=== PATIENT | female | born 1950 | race Caucasian/White ===

== ENCOUNTER 2022-06-15 13:42 | Observation (INO) | payer MEDICARE, SELFPAY ==
[2022-06-15] VITALS (9 sets, daily range): BP systolic 112–150; BP diastolic 58–103; PULSE 76–132; RESP 16–20; TEMP 36.7; O2SAT 95–98
--- NOTE | 2022-06-15 13:57 | ECG_ITS ---
[facility] Test Date: 2022-06-15 Pat Name: Brittany Harrington Department: Room: Gender: Female Content Director: : 1950 Requested By: Zackary Bell Order Number: [id number] Christine MD: Sabrina Mckenzie M.D. Measurements Intervals [place] Rate: 131 P: -82 IA: 110 QRS: -54 QRSD: 129 T: 57 QT: 376 QTc: 555 Interpretive Statements Possible sinus tachycardia with frequent SUPRAVENTRICULAR PREMATURE COMPLEXES RIGHT BUNDLE BRANCH BLOCK [120+ ms QRS DURATION, UPRIGHT V1, 40+ ms S IN I/aVL/V4/V5/V6] LEFT ANTERIOR FASCICULAR BLOCK [QRS AXIS <= -45, QR IN I, RS IN II] LEFT VENTRICULAR HYPERTROPHY AND ST-T CHANGE [VOLTAGE CRITERIA PLUS ST/T ABNORMALITY] POSSIBLE SEPTAL MYOCARDIAL INFARCTION , OF INDETERMINATE AGE [30 ms Q WAVE IN V1/V2] No previous ECG available for comparison Electronically Signed On 06-15-2022 15:59:58 SNOWBOARDER by Sabrina Mckenzie M.D. [email or web address] the [email or web address] [email or web address] [email or web address]/store/[id number] chase
--- NOTE | 2022-06-15 14:04 | XRR_ITS ---
PROCEDURE INFORMATION: Exam: XR Chest Exam date and time: 06/15/2022 3:13 PM Age: 72 years old Clinical indication: Pain; Chest pressure; Additional info: Cp TECHNIQUE: Imaging protocol: Radiologic exam of the chest. Views: 1 view. COMPARISON: No relevant prior studies available. FINDINGS: Lungs: Unremarkable. No consolidation. Pleural spaces: Unremarkable. No pleural effusion. No pneumothorax. Heart/Mediastinum: Unremarkable. No cardiomegaly. Bones/joints: Unremarkable. XR/XR chest 1V portable [id number] IMPRESSION: No acute findings.
[2022-06-15] MEDS: sodium chloride 0.9% 1,000 ML 999 ML IV (14:17)
[2022-06-15 14:20] LABS: Basophils # 0.1 10^3/uL (0.0-0.1); Basophils % 0.5 %; Eosinophils # 0.1 10^3/uL (0.0-0.8); Eosinophils % 1.1 %; Hematocrit 49.9 % (37.0-47.0); Hemoglobin 15.9 g/dL (11.5-15.3); Lymphocytes % 20.2 %; Mean Corpuscular HGB Conc 31.9 g/dL (30.0-36.0); Mean Corpuscular Hemoglobin 27.9 pg (28.0-34.0); Mean Corpuscular Volume 87.7 fl (81-99); Mean Platelet Volume 11.2 fL (7.4-10.4); Monocytes # 0.9 10^3/uL (0.2-0.9); Monocytes % 8.7 %; Neutrophils # 6.99 10^3/uL (1.8-7.7); Neutrophils % 69.2 %; Nucleated Red Blood Cells % 0 %; Platelet Count 344 10^3/cmm (130-400); Red Blood Count 5.69 10^6/uL (4.1-5.3); Red Cell Distribution Width 14.1 % (12.1-15.1); White Blood Count 10.1 10^3/uL (4.0-10.0)
--- NOTE | 2022-06-15 14:21 | ECG_ITS ---
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 Measurements Intervals [place] Rate: 82 P: 26 MA: 142 QRS: -30 QRSD: 130 T: 54 QT: 461 QTc: 541 Interpretive Statements SINUS RHYTHM POSSIBLE LEFT ATRIAL ENLARGEMENT [-0.1mV P-WAVE IN V1/V2] RIGHT BUNDLE BRANCH BLOCK [120+ ms QRS DURATION, UPRIGHT V1, 40+ ms S IN I/aVL/V4/V5/V6] POSSIBLE LEFT VENTRICULAR HYPERTROPHY [VOLTAGE CRITERIA PLUS LAE OR QRS WIDENING] POSSIBLE SEPTAL MYOCARDIAL INFARCTION , PROBABLY OLD [30 ms Q WAVE IN V1/V2] No previous ECG available for comparison Electronically Signed On 06-15-2022 16:00:03 METAL BONDING ASSEMBLER by Sabrina Mckenzie M.D. [id number]
--- NOTE | 2022-06-15 14:37 | W.ED.CHESTPA ---
HPI - Chest Pain General: Chief Complaint: Chest Pain Stated Complaint: CHEST PAIN Time Seen by Provider: 06/15/22 13:45 History of Present Illness: 72-year-old female presents the emergency department with a chief complaint of having an episode of midsternal chest pressure that started prior to arrival as well as palpitations. Patient contacted EMS who brought her in and she did had nitroglycerin paste applied as was nitroglycerin only reviewed room proved her pain from a 6 down to a 5 patient does have a history of cardiac issues including arrhythmia such as SVT as well as A. fib. The patient does not report any recent infections or illnesses she reports no recent medication changes or any other associated symptoms. Associated symptoms: Reports palpitations; Deny abdominal pain, dyspnea, fever(s), nausea or vomiting Review of Systems General: Reports: 10 or more systems reviewed and unremarkable except in HPI and below Narrative: Anxiety Const: Denies: fever(s), chills, fatigue or malaise Eyes: Denies: change in vision or blurry vision Card: Reports: chest pain, palpitations and irregular heart rhythm Resp: Denies: dyspnea or productive cough GI: Denies: abdominal pain, nausea or vomiting : Denies: flank pain Musc: Denies: extremity pain or extremity swelling Skin/Breast: Denies: rash or pruritus Neuro: Denies: headache(s) Psych: Denies: anxiety or depression Kenny/Lymph: Denies: easy bleeding All/Imm: Denies: urticaria, throat swelling or facial swelling PFSH ED PFSH: Medical History (Updated 06/15/22 @ 18:47 by Zackary Bell) Atrial fibrillation Dementia Family History (Updated 06/15/22 @ 18:22 by Bryon Avelar MD) Other Stroke Physical Exam Const: COMMON NORMALS: no acute distress, patient oriented x3 and healthy appearing HENMT: COMMON NORMALS: normocephalic and atraumatic HEAD & SCALP: normocephalic and atraumatic Eye: COMMON NORMALS: Equal, round and reactive pupils present and EOMs intact bilaterally PUPIL: Yes Equal, round and reactive pupils present Neck/C-Spine: COMMON NORMALS: full ROM and supple Lymph: LYMPHATIC: no lymphadenopathy noted Chest: COMMONS NORMALS: normal inspection of the chest and normal palpation of entire chest wall Resp: COMMON NORMALS: normal respiratory effort, No retractions and clear to auscultation bilaterally EFFORT & INSPECTION: Yes able to speak in complete sentences and Yes symmetric chest movement AUSCULTATION: clear to auscultation bilaterally Cardio: OTHER: Side tachycardia rate of proxy 08/20/1941 hernia frequent PACs or possibly in and out of SVT versus atrial fibrillation. GI: COMMON NORMALS: Normal to inspection, nondistended, normoactive bowel sounds present, Soft to palpation and non-tender INSPECTION: Yes normal to inspection PALPATION: Yes Soft to palpation : COMMON NORMALS: Yes no CVA tenderness BLADDER/KIDNEY EXAM: Yes no CVA tenderness Back/Pelvis: COMMON NORMALS: no CVA tenderness Extremity: COMMON NORMALS: normal to inspection and full ROM Neuro: COMMON NORMALS: patient oriented x3, CN's II-XII intact bilaterally, moves all extremities and no focal motor deficits Psych: COMMON NORMALS: mental status grossly normal, Normal thought process present, cooperative and normal affect THOUGHT PROCESS: Normal thought process present Skin: COMMON NORMALS: no rashes or lesions noted GENERAL SKIN EXAM: no rashes or lesions noted Course ED course: Due to the patient's symptoms and condition lab work was obtained IV was accessed patient did appear to be in and out of atrial fibrillation did order a dose of Cardizem for the patient however she went into a normal sinus rhythm rate 88 we will continue to follow patient now reports her pain is much improved patient was prior to my arrival to [facility] 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 Anguiano hospitalist that recommends placement to the CCU. Lab Data 06/15/22 13:10 06/15/22 13:10 Radiology Impressions Chest X-Ray 06/15/22 14:04 IMPRESSION: No acute findings. Laboratory Results WBC 10.1 10^3/uL (4.0-10.0) H 06/15/22 13:10 RBC 5.69 10^6/uL (4.1-5.3) H 06/15/22 13:10 Hgb 15.9 g/dL (11.5-15.3) H 06/15/22 13:10 Hct 49.9 % (37.0-47.0) H 06/15/22 13:10 MCV 87.7 fl (81-99) 06/15/22 13:10 MCH 27.9 pg (28.0-34.0) L 06/15/22 13:10 MCHC 31.9 g/dL (30.0-36.0) 06/15/22 13:10 RDW 14.1 % (12.1-15.1) 06/15/22 13:10 Plt Count 344 10^3/cmm (130-400) 06/15/22 13:10 MPV 11.2 fL (7.4-10.4) H 06/15/22 13:10 Neut % (Auto) 69.2 % 06/15/22 13:10 Lymph % (Auto) 20.2 % 06/15/22 13:10 [place] % (Auto) 8.7 % 06/15/22 13:10 Eos % (Auto) 1.1 % 06/15/22 13:10 Baso % (Auto) 0.5 % 06/15/22 13:10 Neut # (Auto) 6.99 10^3/uL (1.8-7.7) 06/15/22 13:10 Lymph # (Auto) 2.0 10^3/uL (0.8-4.8) 06/15/22 13:10 [place] # (Auto) 0.9 10^3/uL (0.2-0.9) 06/15/22 13:10 Eos # (Auto) 0.1 10^3/uL (0.0-0.8) 06/15/22 13:10 Baso # (Auto) 0.1 10^3/uL (0.0-0.1) 06/15/22 13:10 Nucleated RBC % (auto) 0 % 06/15/22 13:10 Nucleated RBCs # 0.0 /100WBC 06/15/22 13:10 PT 23.50 SECONDS (12.1-14.9) H 06/15/22 13:16 INR 2.05 (0.8-1.2) H 06/15/22 13:16 D-Dimer <= 0.27 ug/mIFEU (0-0.59) 06/15/22 13:16 Sodium 142 mmol/L (136-145) 06/15/22 13:10 Potassium 3.2 mmol/L (3.5-5.1) L 06/15/22 13:10 Chloride 104 mmol/L (98-107) 06/15/22 13:10 Carbon Dioxide 22 mmol/L (22-29) 06/15/22 13:10 Anion Gap 19.2 (5-19) H 06/15/22 13:10 BUN 15 mg/dL (8-23) 06/15/22 13:10 Creatinine 0.8 mg/dL (0.5-0.9) 06/15/22 13:10 GFR Calculation Not Reportable 06/15/22 13:10 Glucose 94 mg/dL (65-115) 06/15/22 13:10 Calculated Osmolality 295 mOsm/kg (285-295) 06/15/22 13:10 Calcium 10.0 mg/dL (8.5-10.5) 06/15/22 13:10 Magnesium 1.9 mg/dL (1.7-2.3) 06/15/22 17:54 Total Bilirubin 0.5 mg/dL (0.15-1.2) 06/15/22 13:10 AST 26 U/L (0-32) 06/15/22 13:10 ALT 21 U/L (0-33) 06/15/22 13:10 Alkaline Phosphatase 124 U/L (35-105) H 06/15/22 13:10 Troponin T Baseline 27 ng/L (0-10) H 06/15/22 13:10 Troponin T 120 Minute 35.17 ng/L (0-10) H 06/15/22 15:34 Delta Troponin T 8.17 ABS# (0-10) 06/15/22 15:34 NT-Pro-B Natriuret Pep 1824 pg/mL (0-125) H 06/15/22 13:10 Total Protein 7.5 g/dL (6.6-8.7) 06/15/22 13:10 Albumin 4.1 g/dL (3.5-5.2) 06/15/22 13:10 Globulin 3.4 g/dL (1.3-4.6) 06/15/22 13:10 TSH 0.81 uIU/mL (0.27-4.20) 06/15/22 17:54 Discharge Plan Discharge Patient Disposition: Admitted As Inpatient Admit Provider: Kiara Anguiano Clinical Impression: Atrial fibrillation, Chest pain, SVT (supraventricular tachycardia), Elevated troponin Condition: Stable Coding Level of Care Code ED Cover Marker for Chg Fwd Exam Comprehensive
[2022-06-15 14:44] LABS: Troponin(5th) Baseline 27 ng/L (0-10)
[2022-06-15 14:54] LABS: Alanine Aminotransferase 21 U/L (0-33); Albumin Level 4.1 g/dL (3.5-5.2); Alkaline Phosphatase 124 U/L (35-105); Anion Gap 19.2 (5-19); Aspartate Amino Transferase 26 U/L (0-32); Blood Urea Nitrogen 15 mg/dL (8-23); Carbon Dioxide 22 mmol/L (22-29); Chloride 104 mmol/L (98-107); Globulin 3.4 g/dL (1.3-4.6); Glucose 94 mg/dL (65-115); NT Pro B Type Natriuretic Pept 1824 pg/mL (0-125); Osmolality Calculated 295 mOsm/kg (285-295); Potassium 3.2 mmol/L (3.5-5.1); Sodium 142 mmol/L (136-145); Total Bilirubin 0.5 mg/dL (0.15-1.2); Total Protein 7.5 g/dL (6.6-8.7)
[2022-06-15 16:01] LABS: Troponin 5 2HR 35.17 ng/L (0-10)
[2022-06-15 16:09] LABS: Troponin 5 2HR Delta 8.17 ABS# (0-10)
--- NOTE | 2022-06-15 17:47 | P.HP_ITS ---
Providers/Chief Complaint Chief Complaint: CHEST PAIN History of Present Illness History partially gathered through discussion with ER physician, patient and caregiver at bedside. Brittany Harrington is a 72 year old female with past medical history of atrial fibrillation on warfarin anticoagulation, dementia presented to the ER today because of palpitations along with chest pain which were radiating to neck and jaw since today morning. Patient has been having symptoms of palpitations/fl uttering in her chest on and off for last few days. She even had some episodes last night. Today episodes were also associated with difficulty in breathing. Patient states she has occasional difficulty in breathing at baseline but symptoms have been getting worse with palpitations recently. Complete medical history is not currently available as patient has mild dementia and is traveling to [place] and living with a caregiver. Patient's daughter who is her primary caregiver Ms. Wright also is at hospital for a possible stroke. We will try to call her again for more medical information. When patient was brought to the ER she was found to have few runs of arrhythmias which are concerning for SVT which were self-limiting. After patient converted back to normal sinus rhythm her chest pain also subsided and her breathing came back to normal. Examination patient was sitting up in the bed, awake and alert with heart rate of 88 bpm and blood pressure of 140/80 with a caregiver at bedside. Review of Systems General: Reports: 10 or more systems reviewed and unremarkable except in HPI and below Const: Denies: fever(s), chills, body aches, change in appetite, change in sandee ght, malaise, night sweats, diaphoresis, change in sleep pattern, daytime sleepiness or snoring Eyes: Denies: change in vision, blurry vision, photophobia, eye discomfort or eye discharge ENMT: Denies: throat pain, enlarged tonsils, hoarseness, mouth pain, oral sores, dry mouth, tinnitus, nasal congestion or post nasal drip Card: Denies: chest pain, palpitations, irregular heart rhythm, edema, swelling of feet/ankles, lightheadedness, syncope, pre-syncope, dyspnea on exertion, orthopnea, leg pain with exertion or acrocyanosis Resp: Denies: dyspnea, productive cough, non-productive cough, wheezing, stridor, pain on inspiration, change in phlegm color, hemoptysis or chest c ongestion GI: Denies: abdominal pain, nausea, vomiting, hematemesis, coffee ground emesis, dysphagia, heartburn, diarrhea, constipation, bloating, GI cramping, change in bowel habits, pain on defecation, hematochezia or melena : Denies: flank pain, dysuria, urinary frequency, urinary urgency, urinary hesitancy, nocturia or hematuria Musc: Denies: neck pain, back pain, extremity pain, joint pain, joint swe lling, joint redness, joint stiffness or limited range of motion Neuro: Denies: headache(s), numbness in extremities, weakness in extremities, sensory changes, lack of coordination, difficulty walking, frequent falls, dizziness, vertigo, confusion, Slurred speech present, difficulty communicating thoughts or seizure-like activity Psych: Denies: anxiety, depression, mood swings, panic attacks, hopelessness or irritability Endo: Denies: polyuria, polydipsia, tired all the time, cold intolerance, excessive sweating, flushing or heat intolerance Kenny/Lymph: Denies: easy bruising or easy bleeding All/Imm: Denies: tongue swelling, facial swelling or acute wheezing Medications/Allergies Home Medications Medication Instructions Recorded Confirmed Last Taken Type amlodipine 2.5 mg tablet 2.5 mg PO DAILY 06/15/22 06/15/22 06/15/22 History donepezil 5 mg tablet 5 mg PO BEDTIME 06/15/22 06/15/22 06/14/22 History fluoxetine 10 mg tablet 30 mg PO DAILY 06/15/22 06/15/22 06/15/22 History furosemide 20 mg tablet (Lasix) 20 mg PO DAILY 06/15/22 06/15/22 06/15/22 History hydralazine 50 mg tablet 75 mg PO BID 06/15/22 06/15/22 06/15/22 History metoprolol tartrate 100 mg tablet 100 mg PO BID 06/15/22 06/15/22 06/15/22 History oxybutynin chloride 5 mg tablet 5 mg PO TID 06/15/22 06/15/22 06/15/22 History warfarin 3 mg tablet 3 mg PO DAILY 06/15/22 06/15/22 06/15/22 History Allergies Allergy/AdvReac Type Severity Reaction Status Date / Time codeine Allergy Unknown Unknown Verified 06/15/22 17:59 PFSH Acute PFSH: Medical History (Updated 06/15/22 @ 18:19 by Bryon Avelar MD) Atrial fibrillation Dementia Family History (Updated 06/15/22 @ 18:22 by Bryon Avelar MD) Other Stroke Vitals/I&O/Wt Last Vital Signs Pulse 76 06/15/22 16:44 Resp 16 06/15/22 16:44 BP 120/103 06/15/22 16:44 Pulse Ox 96 06/15/22 16:44 O2 Del Method 06/15/22 16:44 06/15/22 06/15/22 06/15/22 06:59 14:59 22:59 Intake Total 1000 / 1000 Balance 1000 / 1000 Physical Exam Narrative: EXAM NARRATIVE: General: No acute distress, AO x3, anxious anxious HEENT: PERRLA, pupils bilaterally equal and reactive Chest: Bilateral normal vesicular breath sounds, occasional rhonchi all over the lung singh CVS: S1-S2 regular, soft pansystolic murmur at apex, no tachycardia, no gallops, no rubs Abdomen: Soft, nontender, no organomegaly, bowel sounds present, morbidly obese Neuro: No focal deficits, no facial deformity, AO x3, power 5/5 in all limbs Data 06/15/22 13:10 06/15/22 13:10 A&P Assessment and plan (1) Chest pain: Associated with difficult in breathing while patient was having tachyarrhythmia. No strips available currently. SVT versus atrial fibrillation with rapid ventricular response. Given patient's age, history will need to rule out CAD. We will plan for Lexiscan stress test. Check A1c, lipid panel. Aspirin 325 mg 1 time, 81 mg daily. Start on atorvastatin 20 mg nightly for now. Check echocardiogram. (2) Atrial fibrillation: Chronic history. Continue with home dose of metoprolol 100 mg twice daily. Takes warfarin 3 mg daily at home. Check INR. For now hold off on warfarin and switch to Lovenox 1 mg/kg body weight every 12 hourly. (3) SVT (supraventricular tachycardia): Suspected. Telemetry monitoring. Keep potassium around 4, magnesium over 2. Check TSH, iron panel, folate, vitamin B12 levels. Check urine drug screen, COVID-19 PCR, flu swab. (4) Dementia: Continue with home dose of donepezil and fluoxetine Plan Hypertension: Patient takes amlodipine 2.5 mg daily along with hydralazine 75 mg twice daily at home. Continue with home dose of antihypertensives. Monitor. Goal blood pressure less than 140/90 mmHg. Patient follows up with Dr. Aapricio at [place]. We will try to get more documentations regarding medical history once office opens in the weekday. Admit to CSU. Full code. Cardiac diet. Famotidine for PUD prophylaxis. Full dose Lovenox will suffice as DVT prophylaxis Attestations Medical Necessity Statement*: Admission for less than 2 midnights under observation for further evaluation of tachyarrhythmia, chest pain in a patient with history of atrial fibrillation Time Spent in Patient Care: Greater than 35 minutes Coding Level of Care Code Acute Clinical Program Manager for [facility] Fwd Diagnoses Chest pain R07.9 Atrial fibrillation I48.91 SVT (supraventricular tachycardia) I47.1 Dementia F03.90
[2022-06-15 18:05] LABS: INR 2.05 (0.8-1.2)
[2022-06-15 18:08] LABS: D Dimer <= 0.27 ug/mIFEU (0-0.59)
[2022-06-15 18:29] LABS: Magnesium 1.9 mg/dL (1.7-2.3); Thyroid Stimulating Hormone 0.81 uIU/mL (0.27-4.20)
[2022-06-15 19:03] LABS: Troponin 5 6HR 40.01 ng/L (0-10)
[2022-06-15 19:04] LABS: Troponin 5 6HR Delta 13.01 ng/L (0-12)
[2022-06-15 19:21] LABS: Iron 22 ug/dL (37-145); NT Pro B Type Natriuretic Pept 2419 pg/mL (0-125); Percent Saturation 8.8 % (20-50); Total Iron Binding Capacity 249 mcg/dl; Unsaturated Iron Binding 227 ug/dL (112-347); Vitamin B12 516 pg/mL (232-1245)
[2022-06-15 19:25] LABS: Folate Level 7.1 ng/mL (4.8-37.3)
[2022-06-15] MEDS: ferrous gluconate 324 mg Tablet PO (19:52)
[2022-06-15] MEDS: potassium chloride ER 20 mEq Tablet 80 MEQ PO (19:52)
[2022-06-15] MEDS: famotidine 20 mg/2 mL INJ IVP (20:41)
[2022-06-15] MEDS: oxybutynin 5 mg Tablet PO (20:41)
[2022-06-15] MEDS: atorvastatin 40 mg Tablet 20 MG PO (20:41)
[2022-06-15] MEDS: donepezil 5 MG Tablet PO (20:42)
--- NOTE | 2022-06-15 22:14 | ECG_ITS ---
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 Measurements Intervals [place] Rate: 81 P: 40 MD: 151 QRS: -57 QRSD: 128 T: 19 QT: 435 QTc: 508 Interpretive Statements SINUS RHYTHM WITH SINUS ARRHYTHMIA RIGHT BUNDLE BRANCH BLOCK [120+ ms QRS DURATION, UPRIGHT V1, 40+ ms S IN I/aVL/V4/V5/V6] LEFT ANTERIOR FASCICULAR BLOCK [QRS AXIS <= -45, QR IN I, RS IN II] MINIMAL VOLTAGE CRITERIA FOR LVH, CONSIDER NORMAL VARIANT [MEETS CRITERIA IN ONE OF: R(aVL), S(V1), R(V5), R(V5/V6)+S(V1)] PROBABLE SEPTAL MYOCARDIAL INFARCTION , PROBABLY OLD [35 ms Q WAVE IN V1/V2] Compared to ECG 06/15/2022 14:21:22 Left anterior fascicular block now present Myocardial infarct finding still present Electronically Signed On 06-17-2022 14:55:50 FLEXIBLE SHAFT WINDER by Sabrina Mckenzie M.D. [id number]
[2022-06-15 23:11] LABS: Adenovirus Not Detected (NOT DETECT); Chlamydia Pneumoniae Not Detected (NOT DETECT); Coronavirus 229E,HKU1,NL63,OC4 Not Detected (NOT DETECT); Human Metapneumovirus Not Detected (NOT DETECT); Human Rhinovirus/Enterovirus Detected (NOT DETECT); Influenza A Not Detected (NOT DETECT); Influenza A H1 Not Detected (NOT DETECT); Influenza A H1-2009 Not Detected (NOT DETECT); Influenza A H3 Not Detected (NOT DETECT); Influenza B Not Detected (NOT DETECT); Mycoplasma Pneumoniae Not Detected (NOT DETECT); Parainfluenza Virus Type 1 Not Detected (NOT DETECT); Parainfluenza Virus Type 2 Not Detected (NOT DETECT); Parainfluenza Virus Type 3 Not Detected (NOT DETECT); Parainfluenza Virus Type 4 Not Detected (NOT DETECT); Respiratory Syncytial Virus A Not Detected (NOT DETECT); Respiratory Syncytial Virus B Not Detected (NOT DETECT); SARS-COV-2 Not Detected (NOT DETECT)
[2022-06-15] MEDS: enoxaparin 80 mg/0.8 mL Syringe SUBCUT (23:52)
[2022-06-15 23:53] LABS: Human Metapneumovirus Not Detected (NOT DETECT); Human Rhinovirus/Enterovirus Detected (NOT DETECT); Results from Genmark
[2022-06-16] VITALS (10 sets, daily range): BP systolic 143–166; BP diastolic 67–92; PULSE 50–97; RESP 17–22; TEMP 36.5–37.1; O2SAT 92–98
[2022-06-16 01:01] LABS: Amphetamines Screen Urine Negative (Negative); Barbiturates Screen Urine Negative (Negative); Benzodiazepines Screen Urine Positive (Negative); Cocaine Screen Urine Negative (Negative); Opiate Screen Urine Negative (Negative); PCP Screen Urine Negative (Negative); THC Screen Urine Negative (Negative)
[2022-06-16 01:09] LABS: Nitrate Urine Positive (Negative); Urine Appearance Clear (CLEAR); Urine Color Yellow (Yellow); pH Urine 7 (5-7)
[2022-06-16 01:10] LABS: Add Urine Microscopic? YES; Bilirubin Urine Neg (Negative); Blood Urine Neg (Negative); Glucose Urine UA Norm (Normal); Ketones Urine Negative (Negative); Leukocyte Esterase Urine 1+ (Negative); Protein Urine Neg (Negative); Urobilinogen Urine Neg (Negative)
[2022-06-16 01:11] LABS: Add Urine Culture? Yes; Bacteria Urine 4+ /hpf; WBC Urine 15-25 /hpf (0-5)
[2022-06-16 04:24] LABS: Basophils % 0.7 %; Eosinophils # 0.1 10^3/uL (0.0-0.8); Eosinophils % 2.1 %; Hemoglobin 13.3 g/dL (11.5-15.3); Lymphocytes # 1.1 10^3/uL (0.8-4.8); Lymphocytes % 19.5 %; Mean Corpuscular HGB Conc 31.7 g/dL (30.0-36.0); Mean Corpuscular Hemoglobin 27.6 pg (28.0-34.0); Mean Corpuscular Volume 87.1 fl (81-99); Mean Platelet Volume 10.9 fL (7.4-10.4); Monocytes # 0.4 10^3/uL (0.2-0.9); Monocytes % 6.9 %; Neutrophils # 3.97 10^3/uL (1.8-7.7); Neutrophils % 70.6 %; Nucleated Red Blood Cells % 0 %; Platelet Count 300 10^3/cmm (130-400); Red Blood Count 4.82 10^6/uL (4.1-5.3); Red Cell Distribution Width 14.1 % (12.1-15.1); White Blood Count 5.6 10^3/uL (4.0-10.0)
[2022-06-16 04:44] LABS: Estmated Average Glucose 97
[2022-06-16 04:46] LABS: Alanine Aminotransferase 16 U/L (0-33); Albumin Level 3.3 g/dL (3.5-5.2); Alkaline Phosphatase 100 U/L (35-105); Anion Gap 12.5 (5-19); Aspartate Amino Transferase 18 U/L (0-32); Blood Urea Nitrogen 14 mg/dL (8-23); Carbon Dioxide 23 mmol/L (22-29); Chloride 104 mmol/L (98-107); Chol HDL Ratio 3.28 mg/dL (0.0-4.40); Cholesterol 164 mg/dL (0-200); Globulin 2.8 g/dL (1.3-4.6); Glucose 86 mg/dL (65-115); HDL Cholesterol 50 mg/dL (60-100); LDL Cholesterol Calculated 102 mg/dL (50-129); Magnesium 2.1 mg/dL (1.7-2.3); Osmolality Calculated 280 mOsm/kg (285-295); Potassium 4.5 mmol/L (3.5-5.1); Sodium 135 mmol/L (136-145); Total Bilirubin 0.4 mg/dL (0.15-1.2); Total Protein 6.1 g/dL (6.6-8.7); Triglycerides 61 mg/dL (0-150); VLDL Cholestrol Calculation 12 mg/dL (0-30)
--- NOTE | 2022-06-16 06:00 | USCV_ITS ---
Vincenzozenonaddie Brittany Age: 72 Gender: F : 1950 Exam Date: 06/16/2022 08:27 Ordering Phys: Bryon Avelar MD Technologist: Juan Alberts Exam Location[place] [facility] [place] Indication: chest pain svt BP: 166 / 76 HR: 73 Rhythm: Sinus Technical Quality: Adequate MEASUREMENTS (Male / Female) Normal Values 2D ECHO LV Diastolic Diameter PLAX 3.5 cm 4.2 - 5.9 / 3.9 - 5.3 cm LV Systolic Diameter PLAX 2.3 cm IVS Diastolic Thickness 1.3 cm 0.6 - 1.0 / 0.6 - 0.9 cm IVS Systolic Thickness 1.4 cm LVPW Diastolic Thickness 1.3 cm 0.6 - 1.0 / 0.6 - 0.9 cm LVPW Systolic Thickness 1.5 cm LVOT Diameter 2.0 cm LV Ejection Fraction 2D Teich 66.3 % LV Ejection Fraction MOD 2C 60.4 % LV Ejection Fraction 2C AL 60.7 % LA Diameter 4.1 cm Aorta at Sinotubular Diameter 2.7 cm M-MODE Aortic Annulus Diameter 2.9 cm LA Ao Ratio MM 1.5 MV E Point Septal Separation 1.0 cm DOPPLER AV Peak Velocity 157.0 cm/s LVOT Peak Velocity 143.0 cm/s AV Area Cont Eq vti 2.9 cm squared AV Area Cont Eq pk 2.9 cm squared MV Area PHT 5.0 cm squared Mitral E to A Ratio 0.8 MV E' Velocity 42.2 cm/s Mitral E to MV E' Ratio 9.3 Mitral E to LV E' Lateral Ratio 7.9 Mitral E to LV E' Septal Ratio 11.3 TR Peak Velocity 162.7 cm/s TR Peak Gradient 10.6 mmHg TV Peak E Velocity 84.0 cm/s Right Atrial Pressure 3.0 mmHg Pulmonary Artery Systolic Pressu 13.6 mmHg FINDINGS Left Ventricle Normal left ventricular size and systolic function, EF 65 %. Mild left ventricular hypertrophy. Grade I/IV diastolic dysfunction (abnormal relaxation filling pattern), normal to mildly elevated filling pressures. Right Ventricle The right ventricle is normal in size and function. Right Atrium The right atrium is normal in size. Left Atrium The left atrium is normal in size. Mitral Valve Mild mitral annular calcification. Aortic Valve Thickened aortic valve. Tricuspid Valve Trace tricuspid valve regurgitation. Pulmonic Valve Pulmonic valve not well visualized. Pericardium Normal pericardium without effusion. Aorta Normal ascending aorta dimension. IVC Inferior vena cava not visualized. CONCLUSIONS Normal left ventricular size and systolic function, EF 65 %. Mild left ventricular hypertrophy. Grade I/IV diastolic dysfunction (abnormal relaxation filling pattern), normal to mildly elevated filling pressures. Features of aortic valve sclerosis. Mild mitral annular calcification. There is no pericardial effusion. There are no intracardiac masses. No similar previous studies are available for comparison Dr Sabrina Mckenzie MD [facility] (Electronically Signed) Final Date: 17 June 2022 08:22 S
[2022-06-16] MEDS: ferrous gluconate 324 mg Tablet PO ×2 (09:45→17:35)
[2022-06-16] MEDS: metoprolol tartrate 50 mg Tablet 100 MG PO (09:45)
[2022-06-16] MEDS: amlodipine 5 mg Tablet 2.5 MG PO (09:45)
[2022-06-16] MEDS: famotidine 20 mg/2 mL INJ IVP ×2 (09:45→19:34)
[2022-06-16] MEDS: oxybutynin 5 mg Tablet PO ×3 (09:45→21:21)
[2022-06-16] MEDS: aspirin 81 mg EC Tablet PO (09:45)
[2022-06-16] MEDS: cefTRIAXone 1,000 MG in sodium chloride 0.9% (plus) 50 ML 100 MG IV (10:27)
[2022-06-16] MEDS: hyDRALAzine 50 mg Tablet PO ×3 (10:28→21:21)
[2022-06-16] MEDS: enoxaparin 80 mg/0.8 mL Syringe SUBCUT (12:51)
--- NOTE | 2022-06-16 13:05 | P.PN_ITS ---
Subjective Subjective: No acute events overnight. Patient denies any nausea, vomiting, headache, difficulty in breathing, diarrhea. Telemetry has remained stable. BP slightly elevated. Remains on RA. Seen walking in the room with walker. Vitals/I&O/Wt Last Vital Signs Temp 97.8 F 06/16/22 12:00 Pulse 65 06/16/22 12:00 Resp 18 06/16/22 12:00 BP 164/76 06/16/22 12:00 Pulse Ox 92 06/16/22 12:00 O2 Del Method 06/16/22 12:00 06/15/22 06/16/22 06/16/22 22:59 06:59 14:59 Intake Total 1000 / 1000 390 / 390 Balance 1000 / 1000 390 / 390 Weight last 48 hrs Weight 83.779 kg Weight 83.915 kg Physical Exam Narrative: General: No acute distress, AO x3, HEENT: PERRLA, pupils bilaterally equal and reactive Chest: Bilateral normal vesicular breath sounds, occasional rhonchi all over the lung singh CVS: S1-S2 regular, soft pansystolic murmur at apex, no tachycardia, no gallops, no rubs Abdomen: Soft, nontender, no organomegaly, bowel sounds present, morbidly obese Neuro: No focal deficits, no facial deformity, AO x3, power 5/5 in all limbs Data 06/16/22 02:40 06/16/22 02:40 Micro: Microbiology 06/16/22 00:00 Bacterial Antigens - Final Urine Kidney A&P Assessment and plan (1) Chest pain: Associated with difficult in breathing while patient was having tachyarrhythmia. No strips available currently. SVT versus atrial fibrillation with rapid ventricular response. Given patient's age, history will need to rule out CAD. We will plan for Lexiscan stress test. Check A1c, lipid panel. Aspirin 325 mg 1 time, 81 mg daily. Start on atorvastatin 20 mg nightly for now. Check echocardiogram. Dimer negative (2) Atrial fibrillation: Chronic history. Continue with home dose of metoprolol 100 mg twice daily. Takes warfarin 3 mg daily at home. Check INR. For now hold off on warfarin and switch to Lovenox 1 mg/kg body weight every 12 hourly. (3) SVT (supraventricular tachycardia): Suspected. Telemetry monitoring. Keep potassium around 4, magnesium over 2. Rhino virus positive. UA positive for nitrate. Start on empiric Rocephin. (4) Dementia: Continue with home dose of donepezil and fluoxetine Plan Hypertension: Patient takes amlodipine 2.5 mg daily along with hydralazine 75 mg twice daily at home. Continue with home dose of antihypertensives. Monitor. Goal blood pressure less than 140/90 mmHg. Patient follows up with Dr. Aparicio at [place]. We will try to get more documentations regarding medical history once office opens in the weekday. Continue care at [facility]. Full code. Cardiac diet. Famotidine for PUD prophylaxis. Full dose Lovenox will suffice as DVT prophylaxis Plan for the day: Add hydralazine 50 mg TID. Uptitrate keeping goals at 140/90 mmhg. Plan for lexiscan in AM. NPO after midnight. Appreciate lipid panel and A1c. C/w full dose lovenox for now. F/u Echocardiogram. Lopressor 100 mg BID. HR settled. Monitor on tele. Monitor electrolytes. UA positive for nitrate. Start on ceftriaxone 1 gm IV QD. f/u Ucx and change as per sensitivities. Viral panel Rhino positive- C/w supportive treatment. Monitor oxygen levels. Attestations Medical Necessity Statement*: Requires further hospitalization for management and further evaluation of SVT while ischemia is r/o, UTI and rhinovirus infection Time Spent in Patient Care: Greater than 35 minutes Coding Level of Care Code Acute Remanufacturing Technician for [facility] Fwd Diagnoses Chest pain R07.9 Atrial fibrillation I48.91 SVT (supraventricular tachycardia) I47.1 Dementia F03.90
[2022-06-16] MEDS: atorvastatin 40 mg Tablet 20 MG PO (21:21)
[2022-06-16] MEDS: donepezil 5 MG Tablet PO (21:21)
[2022-06-17] VITALS (57 sets, daily range): BP systolic 139–169; BP diastolic 72–100; PULSE 47–89; RESP 10–23; TEMP 36.4–36.8; O2SAT 95–99
[2022-06-17] MEDS: enoxaparin 80 mg/0.8 mL Syringe SUBCUT
[2022-06-17 04:47] LABS: Basophils # 0.1 10^3/uL (0.0-0.1); Basophils % 0.7 %; Eosinophils # 0.2 10^3/uL (0.0-0.8); Eosinophils % 1.9 %; Hematocrit 44.4 % (37.0-47.0); Hemoglobin 13.5 g/dL (11.5-15.3); Lymphocytes # 1.3 10^3/uL (0.8-4.8); Lymphocytes % 14.3 %; Mean Corpuscular HGB Conc 30.4 g/dL (30.0-36.0); Mean Corpuscular Hemoglobin 28.5 pg (28.0-34.0); Mean Corpuscular Volume 93.9 fl (81-99); Mean Platelet Volume 10.5 fL (7.4-10.4); Monocytes # 0.5 10^3/uL (0.2-0.9); Monocytes % 6.1 %; Neutrophils # 6.77 10^3/uL (1.8-7.7); Neutrophils % 76.7 %; Nucleated Red Blood Cells % 0 %; Platelet Count 284 10^3/cmm (130-400); Red Blood Count 4.73 10^6/uL (4.1-5.3); Red Cell Distribution Width 14.1 % (12.1-15.1); White Blood Count 8.8 10^3/uL (4.0-10.0)
--- NOTE | 2022-06-17 06:18 | ECG_ITS ---
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 Interpretive Statements NAME OF STUDY: LEXISCAN SESTAMIBI STRESS TEST INDICATION: UNSTABLE ANGINA PROCEDURE: At the baseline, the blood pressure was 156/86 mmHg with a heart rate of 65 bpm. The electrocardiogram showed sinus rhythm, left anterior fascicular block, right bundle branch block. The Lexiscan was infused over a period of 20 seconds. A total of 0.4 milligrams of Lexiscan was infused. The stress phase was continued for a total of 5 minutes. Heart rate at the end of the stress phase was 92 bpm with a blood pressure of 142/72 mmHg. The EKG at the peak infusion revealed no significant ST-T wave changes. Sestamibi was injected 20 seconds after the Lexiscan infusion. Blood pressure at the end of the recovery phase was 131/71 mmHg with a heart rate of 88 beats per minute. CONCLUSION: 1. No significant EKG changes with the LexiScan infusion. 2. No LexiScan induced chest pain or cardiac arrhythmia. 3. Normal blood pressure and heart rate response. 4. Sestamibi/sestamibi perfusion scan pending; see separate report. Electronically Signed On 06-17-2022 10:32:00 PRE SALES ARCHITECT by Crystal Green M.D. [id number]
[2022-06-17 06:35] LABS: Alanine Aminotransferase 17 U/L (0-33); Albumin Level 3.6 g/dL (3.5-5.2); Alkaline Phosphatase 106 U/L (35-105); Aspartate Amino Transferase 20 U/L (0-32); Blood Urea Nitrogen 14 mg/dL (8-23); Calcium 9.6 mg/dL (8.5-10.5); Carbon Dioxide 24 mmol/L (22-29); Chloride 101 mmol/L (98-107); Globulin 3.1 g/dL (1.3-4.6); Glucose 94 mg/dL (65-115); Osmolality Calculated 280 mOsm/kg (285-295); Sodium 135 mmol/L (136-145); Total Bilirubin 0.3 mg/dL (0.15-1.2); Total Protein 6.7 g/dL (6.6-8.7)
--- NOTE | 2022-06-17 06:43 | NMCV_ITS ---
NM ros perf SPECT r/s* [id number] Brittany Harrington Age: 72 Gender: F : 1950 Exam Date: 06/17/2022 06:52 Ordering Phys: Bryon Avelar MD Technologist: SHER Schwab Exam Location: [facility] Indications: CHEST PAIN STRESS TEST Please see separate stress test report in [facility] for full findings IMAGE PROTOCOL Rest/Stress 1 Lexiscan Day Radiopharmaceutical Dose (mCi) Administration Site Administered by Rest: Tc-99m 9.8 IV SHER [place] Sestamibi Stress:Tc-99m 32.9 IV SHER [place]uca Sestamibi Rest: 17-Jun-2022 60 Discovery 630 Stress: 17-Jun-2022 30 Discovery 630 0.4mg Lexiscan. Images obtained in supine and prone position. SPECT RESULTS Technical Quality: Excellent Raw Data Analysis: Normal Image Corrections: No attenuation or motion correction applied Summed Stress Score: 1 Summed Rest Score: 5 Summed Difference Score: 0 PERFUSION FINDINGS Small sized perfusion abnormality of mild severity of mid inferolateral and apical lateral underwood on rest images with improved tracer uptake on stress images. This is suggestive of attenuation artifact. FUNCTIONAL RESULTS (calculated via Gated SPECT) Stress Image LV EF (%): 77 Stress EDV (mL):82 TID: 1.11 Stress ESV (mL):19 FUNCTIONAL FINDINGS: The left ventricle is normal in size. Transient Ischemia Dilatation of 1.1. There is normal left ventricular systolic function. The left ventricular ejection fraction is normal with a value of 77%. There is normal left ventricular wall thickening. Normal end-diastolic and end-systolic volumes IMPRESSIONS 1. Myocardial perfusion imaging is normal. Attenuation artifact noted in inferolateral wall. 2. Overall left ventricular systolic function is normal without regional wall motion abnormalities,LVEF=77%. 3. No EKG changes noted with Lexiscan infusion. Refer to separate report for details. Crystal Green MD (Electronically Signed) Final Date: 17 June 2022 10:38 S
[2022-06-17] MEDS: regadenoson 0.4 Mg/5 ml Syringe IVP (07:44)
[2022-06-17] MEDS: ondansetron 2 mg/ML SDV 2 mL 4 MG IVP (07:56)
[2022-06-17] MEDS: famotidine 20 mg/2 mL INJ IVP (09:37)
[2022-06-17] MEDS: amlodipine 5 mg Tablet 2.5 MG PO (09:40)
[2022-06-17] MEDS: ferrous gluconate 324 mg Tablet PO (09:40)
[2022-06-17] MEDS: hyDRALAzine 50 mg Tablet PO (09:42)
[2022-06-17] MEDS: metoprolol tartrate 50 mg Tablet 75 MG PO (09:43)
[2022-06-17] MEDS: aspirin 81 mg EC Tablet PO (09:43)
[2022-06-17] MEDS: oxybutynin 5 mg Tablet PO (09:45)
[2022-06-17] MEDS: cefTRIAXone 1,000 MG in sodium chloride 0.9% (plus) 50 ML 100 MG IV (09:51)
--- NOTE | 2022-06-17 11:29 | PC.CHAP ---
Pastoral Care Encounter/Spiritual Assessment Type of Contact [] Declined music orchestrator visit [] Patient/Family/Request visit [] Outpatient visit [] Follow-up visit [] Physician referral [] Code/Alert [x] Routine visit [] Staff referral [] Actively dying [] Patient sleeping [] Family support [] x] Out of room [] Palliative care [] [] Receiving care in room [] Pre-surgical visit [] Trauma [] Long length of stay [] ICU visit [] Other: Relational/Emotional Strength [] Patient feels connected with others/family/visitors/staff [] Distress [] Loneliness/isolation [] Abandonment Spirituality of Patient [] Person of Yu [] Attends Catholic of their Yu [] Believes in Prayer [] Reads Bible or Adventism materials [] There are Spiritual issues to be addressed Inspector Type Interventions [] Prayer [] Active listening [] Non-anxious presence [] Spiritual/emotional support [] Crisis/trauma care [] Spiritual counseling [] Bereavement support [] Provided bereavement packet [] Provided Bible/devotional materials [] Provided toy/stuffed animal, coloring book to patient or family member [] Provided Communion [] Anointing/[place] [] Salvation [] Completed spiritual assessment [] Other: Impact on Illness or Injury [] Angry [] Fearful [] Anxious [] Often cries [] Exhaustion [] Unable to work [] Unable to attend islam [] Unable to walk/stand [] Unable to read [] Unable to drive [] Unable to eat/drink [] Unable to sleep [] Unable to be with family [] Patient intubated [] Other: Summary Time spent with patient
--- NOTE | 2022-06-17 12:52 | PM.DCS ---
Discharge Providers Date of Admission: 06/15/22 18:15 Date of Discharge: June 17, 2022 Attending Provider at Admission: Kiara Anguiano MD Attending Provider at Discharge: Bryon Avelar MD Diagnoses at Discharge Discharge Diagnosis (1) Chest pain: Status: Acute (2) Atrial fibrillation: Status: Acute (3) SVT (supraventricular tachycardia): Status: Acute (4) Dementia: Status: Acute Reason for Visit Reason for Visit: CHEST PAIN Brief History: History partially gathered through discussion with ER physician, patient and caregiver at bedside. Brittany Harrington is a 72 year old female with past medical history of atrial fibrillation on warfarin anticoagulation, dementia presented to the ER today because of palpitations along with chest pain which were radiating to neck and jaw since today morning.? Patient has been having symptoms of palpitations/fluttering in her chest on and off for last few days.? She even had some episodes last night.? Today episodes were also associated with difficulty in breathing.? Patient states she has occasional difficulty in breathing at baseline but symptoms have been getting worse with palpitations recently. When patient was brought to the ER she was found to have few runs of arrhythmias which are concerning for SVT which were self-limiting.? After patient converted back to normal sinus rhythm her chest pain also subsided and her breathing came back to normal. Examination patient was sitting up in the bed, awake and alert with heart rate of 88 bpm and blood pressure of 140/80 with a caregiver at bedside. Hospital Course Hospital Course Patient presents to the hospital further evaluation and management. Her telemetry during hospitalization remained stable and she did not have any further episodes of tachyarrhythmia. Further work-up showed for her to be positive for enterovirus for which she received supportive treatment. Urinalysis was concerning for UTI with a positive nitrite and leuk esterase. Urine culture growing more than 100,000 gram-negative rods. Patient does denies any complaints of dysuria. On admission she was also found to have low potassium which was repleted. To rule out ischemic event patient underwent cardiac stress test on 06/17 which was reported normal (Full report is not available to me currently). Her hospitalization was otherwise unremarkable. Her antihypertensives including metoprolol dose has been adjusted. She has been discharged home on oral Levaquin for 3 more days to finish a course of antibiotics for possible UTI. She is been discharged home with advised to follow-up with her outpatient primary care provider and crime scene investigator within next 1 week. She is to check her blood pressure daily at home and maintain a blood pressure diary and follow-up with a primary care provider for next available appointment. Physical Exam Narrative: General: No acute distress, AO x3, HEENT: PERRLA, pupils bilaterally equal and reactive Chest: Bilateral normal vesicular breath sounds, occasional rhonchi all over the lung singh CVS: S1-S2 regular, soft pansystolic murmur at apex, no tachycardia, no gallops, no rubs Abdomen: Soft, nontender, no organomegaly, bowel sounds present, morbidly obese Neuro: No focal deficits, no facial deformity, AO x3, power 5/5 in all limbs Discharge Data Studies Completed and Pending Completed Studies During Hospitalization Category Date Time Status Sestamibi Stress Test Request Routine Exams 06/17/22 06:18 Completed XR chest 1V portable [id number] Stat Exams 06/15/22 14:04 Completed CV. echo complete* [id number] Routine Ultrasound 06/16/22 06:00 Completed Pending at discharge Category Date Time Status Sestamibi Stress Test Request Routine Exams 06/16/22 13:18 Stop Req Urine Culture Stat Lab 06/16/22 00:00 Results NM ros perf SPECT r/s* [id number] Routine Nuc Med 06/17/22 06:43 Taken Radiology Impressions Chest X-Ray 06/15/22 14:04 IMPRESSION: No acute findings. Echocardiogram: ?CONCLUSIONS ?Normal left ventricular size and systolic function, EF 65 %. ?Mild left ventricular hypertrophy. Grade I/IV diastolic?dysfunction (abnormal relaxation filling pattern), normal to?mildly elevated filling pressures. ?Features of aortic valve sclerosis. ?Mild mitral annular calcification. ?There is no pericardial effusion. ?There are no intracardiac masses. ?No similar previous studies are available for comparison ?Dr Sabrina Mckenzie MD [facility] ?(Electronically Signed) ?Final Date:? ? ? 17 June 2022 ? 08:22 Laboratory Results WBC 8.8 10^3/uL (4.0-10.0) 06/17/22 04:30 RBC 4.73 10^6/uL (4.1-5.3) 06/17/22 04:30 Hgb 13.5 g/dL (11.5-15.3) 06/17/22 04:30 Hct 44.4 % (37.0-47.0) 06/17/22 04:30 MCV 93.9 fl (81-99) D 06/17/22 04:30 MCH 28.5 pg (28.0-34.0) 06/17/22 04:30 MCHC 30.4 g/dL (30.0-36.0) 06/17/22 04:30 RDW 14.1 % (12.1-15.1) 06/17/22 04:30 Plt Count 284 10^3/cmm (130-400) 06/17/22 04:30 MPV 10.5 fL (7.4-10.4) H 06/17/22 04:30 Neut % (Auto) 76.7 % 06/17/22 04:30 Lymph % (Auto) 14.3 % 06/17/22 04:30 Chambers % (Auto) 6.1 % 06/17/22 04:30 Eos % (Auto) 1.9 % 06/17/22 04:30 Baso % (Auto) 0.7 % 06/17/22 04:30 Neut # (Auto) 6.77 10^3/uL (1.8-7.7) 06/17/22 04:30 Lymph # (Auto) 1.3 10^3/uL (0.8-4.8) 06/17/22 04:30 Chambers # (Auto) 0.5 10^3/uL (0.2-0.9) 06/17/22 04:30 Eos # (Auto) 0.2 10^3/uL (0.0-0.8) 06/17/22 04:30 Baso # (Auto) 0.1 10^3/uL (0.0-0.1) 06/17/22 04:30 Nucleated RBC % (auto) 0 % 06/17/22 04:30 Nucleated RBCs # 0.0 /100WBC 06/17/22 04:30 PT 23.50 SECONDS (12.1-14.9) H 06/15/22 13:16 INR 2.05 (0.8-1.2) H 06/15/22 13:16 D-Dimer <= 0.27 ug/mIFEU (0-0.59) 06/15/22 13:16 Sodium 135 mmol/L (136-145) L 06/17/22 06:10 Potassium 4.0 mmol/L (3.5-5.1) 06/17/22 06:10 Chloride 101 mmol/L (98-107) 06/17/22 06:10 Carbon Dioxide 24 mmol/L (22-29) 06/17/22 06:10 Anion Gap 14.0 (5-19) 06/17/22 06:10 BUN 14 mg/dL (8-23) 06/17/22 06:10 Creatinine 0.7 mg/dL (0.5-0.9) 06/17/22 06:10 GFR Calculation Not Reportable 06/17/22 06:10 Glucose 94 mg/dL (65-115) 06/17/22 06:10 Estimat Average Glucose 97 06/16/22 02:40 Hemoglobin A1c 5.0 % (4.0-6.0) 06/16/22 02:40 Calculated Osmolality 280 mOsm/kg (285-295) L 06/17/22 06:10 Calcium 9.6 mg/dL (8.5-10.5) 06/17/22 06:10 Magnesium 2.1 mg/dL (1.7-2.3) 06/16/22 02:40 Iron 22 ug/dL (37-145) L 06/15/22 18:30 TIBC 249 mcg/dl 06/15/22 18:30 % Saturation 8.8 % (20-50) L 06/15/22 18:30 Unsat Iron Binding 227 ug/dL (112-347) 06/15/22 18:30 Total Bilirubin 0.3 mg/dL (0.15-1.2) 06/17/22 06:10 AST 20 U/L (0-32) 06/17/22 06:10 ALT 17 U/L (0-33) 06/17/22 06:10 Alkaline Phosphatase 106 U/L (35-105) H 06/17/22 06:10 Troponin T Baseline 27 ng/L (0-10) H 06/15/22 13:10 Troponin T 120 Minute 35.17 ng/L (0-10) H 06/15/22 15:34 Delta Troponin T 8.17 ABS# (0-10) 06/15/22 15:34 Troponin T Hi Sens 6Hr 40.01 ng/L (0-10) H 06/15/22 18:30 Troponin T Hi Sens 6Hr Delta 13.01 ng/L (0-12) H* 06/15/22 18:30 NT-Pro-B Natriuret Pep 2419 pg/mL (0-125) H 06/15/22 18:30 Total Protein 6.7 g/dL (6.6-8.7) 06/17/22 06:10 Albumin 3.6 g/dL (3.5-5.2) 06/17/22 06:10 Globulin 3.1 g/dL (1.3-4.6) 06/17/22 06:10 Triglycerides 61 mg/dL (0-150) 06/16/22 02:40 Cholesterol 164 mg/dL (0-200) 06/16/22 02:40 LDL Cholesterol, Calc 102 mg/dL (50-129) 06/16/22 02:40 Total VLDL Cholesterol 12 mg/dL (0-30) 06/16/22 02:40 HDL Cholesterol 50 mg/dL (60-100) L 06/16/22 02:40 Cholesterol/HDL Ratio 3.28 mg/dL (0.0-4.40) 06/16/22 02:40 Vitamin B12 516 pg/mL (232-1245) 06/15/22 18:30 Folate 7.1 ng/mL (4.8-37.3) 06/15/22 18:30 TSH 0.81 uIU/mL (0.27-4.20) 06/15/22 17:54 Urine Color Yellow (Yellow) 06/16/22 00:00 Urine Appearance Clear (CLEAR) 06/16/22 00:00 Urine pH 7 (5-7) 06/16/22 00:00 Ur Specific [place] 1.010 (1.005-1.030) 06/16/22 00:00 Urine Protein Neg (Negative) 06/16/22 00:00 Urine Glucose (UA) Norm (Normal) 06/16/22 00:00 Urine Ketones Negative (Negative) 06/16/22 00:00 Urine Blood Neg (Negative) 06/16/22 00:00 Urine Nitrate Positive (Negative) H 06/16/22 00:00 Urine Bilirubin Neg (Negative) 06/16/22 00:00 Urine Urobilinogen Neg mg/dL (Negative) 06/16/22 00:00 Ur Leukocyte Esterase 1+ (Negative) H 06/16/22 00:00 Urine RBC None /hpf (0-2) 06/16/22 00:00 Urine WBC 15-25 /hpf (0-5) H 06/16/22 00:00 Ur Squamous Epith Cells None /hpf (0-5) 06/16/22 00:00 Amorphous Sediment Not Reportable 06/16/22 00:00 Urine Bacteria 4+ /hpf (NONE) H 06/16/22 00:00 Urine Opiates Screen Negative ng/mL (Negative) 06/16/22 00:00 Ur Barbiturates Screen Negative ng/mL (Negative) 06/16/22 00:00 Ur Phencyclidine Scrn Negative ng/mL (Negative) 06/16/22 00:00 Ur Amphetamines Screen Negative ng/mL (Negative) 06/16/22 00:00 U Benzodiazepines Scrn Positive ng/mL (Negative) H 06/16/22 00:00 Urine Cocaine Screen Negative ng/mL (Negative) 06/16/22 00:00 U Marijuana (THC) Screen Negative ng/mL (Negative) 06/16/22 00:00 Coronavirus 229E (PCR) Not detected (NOT DETECT) 06/15/22 20:45 Human Metapneumovir PCR Not detected (NOT DETECT) 06/15/22 23:52 Entero/Rhino (PCR) Detected (NOT DETECT) A 06/15/22 23:52 SARS-CoV-2 (PCR) Not detected (NOT DETECT) 06/15/22 20:45 Vitals Last Vital Signs Temp 97.6 F 06/17/22 11:21 Pulse 70 06/17/22 11:21 Resp 17 06/17/22 11:21 BP 151/87 06/17/22 11:21 Pulse Ox 96 06/17/22 11:21 O2 Del Method 06/17/22 11:21 Discharge Plan Discharge Patient Disposition: Home Condition: Stable Prescriptions: New levofloxacin 500 mg tablet 500 mg PO Q24H 3 Days Qty: 3 0RF ferrous gluconate 324 mg (37.5 mg iron) Tablet 324 mg PO BIDWM Qty: 60 0RF metoprolol tartrate 50 mg Tablet 75 mg PO BID@0900,2100 30 Days Qty: 90 0RF Continued donepezil 5 mg Tablet 5 mg PO BEDTIME Prozac 10 mg Tablet 30 mg PO DAILY amlodipine 2.5 mg Tablet 2.5 mg PO DAILY warfarin 3 mg Tablet 3 mg PO DAILY hydralazine 50 mg Tablet 75 mg PO BID Lasix 20 mg Tablet 20 mg PO DAILY oxybutynin chloride 5 mg Tablet 5 mg PO TID Discontinued metoprolol tartrate 100 mg Tablet 100 mg PO BID Discharge Orders: Discharge Order (Routine); Ordered 06/17/22 Ordered By: Bryon Avelar Discharge Diet: Cardiac Discharge Activity: Resume usual activity and Increase activity as tolerated Patient Instructions: Opioid Safety Activity Restrictions/Additional Instructions: Please follow-up with your primary care provider and crime scene investigator within next 1 week. Please continue taking all your medications as before other than metoprolol which you should take 75 mg twice daily. Please check your blood pressure daily at home and maintain a blood pressure diary and follow-up with a primary care provider. Please maintain your hydration with up to 2 L of fluid daily. Discharge Attestations Time Spent in Discharge Care*: greater than 30 min Specific Discharge Activities: educating patient, discussing with pcp/other providers, discussing with gearcase assembler/social workers/dc planners, documenting/other paperwork and evaluating patient/reviewing data Status at Discharge: Cognitive status at discharge: cognitively intact, Behavioral status at discharge: cooperative, Functional status at discharge: uses cane/walker, Overall status at discharge: patient is back to baseline Quality Metrics Clinical Quality Measures [ No reported AMI, CVA or VTE this stay] Coding Level of Care Code Acute [facility] DC note Diagnoses Chest pain R07.9 Atrial fibrillation I48.91 SVT (supraventricular tachycardia) I47.1 Dementia F03.90
--- NOTE | 2022-06-17 14:31 | PC.NURSE ---
Patient was d/c at 1429 via wheelchair to the main entrance. Patient was given discharge instructions, education, and follow up appointments. Patient verbalized understanding of all.
== END 2022-06-17 14:32 | disposition home or self-care (01) ==
LOC: ER 18:16 → CSU 18:33
PROVIDERS: Admitting Provider Student in an Organized Health Care Education/Training Program; Emergency Provider Emergency Medicine; Visit Provider Student in an Organized Health Care Education/Training Program
DX: R07.9 Chest pain, unspecified (principal); I48.91 Unspecified atrial fibrillation; I47.1 Supraventricular tachycardia; F03.90 Unspecified dementia, unspecified severity, without behavioral disturbance, psychotic disturbance, mood disturbance, and anxiety; Z79.01 Long term (current) use of anticoagulants
CPT/HCPCS: 36415; 71045; 78452; 80053; 80061; 80306; 81001; 82607; 82746; 83036; 83540; 83550; 83735; 83880; 84443; 84484; 85025; 85378; 85610; 86403; 87077; 87086; 87186; 87635; 87801; 93005; 93017; 93306; 94664; 96365; 96372; 96374; 96375; 99285; A9500; G0378; J0696; J1650; J2405; J2785; J3490; J7030

== ENCOUNTER 2023-03-04 14:08 | Observation (INO) | payer MEDICARE, SELFPAY ==
[2023-03-04] VITALS (10 sets, daily range): BP systolic 134–142; BP diastolic 70–75; PULSE 57–91; RESP 12–19; TEMP 36.5–37; O2SAT 95–98
--- NOTE | 2023-03-04 14:11 | ECG_ITS ---
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 Measurements Intervals [place] Rate: 98 P: 5 MD: 138 QRS: -62 QRSD: 133 T: 59 QT: 396 QTc: 506 Interpretive Statements SINUS RHYTHM POSSIBLE LEFT ATRIAL ENLARGEMENT [-0.1mV P-WAVE IN V1/V2] RIGHT BUNDLE BRANCH BLOCK [120+ ms QRS DURATION, UPRIGHT V1, 40+ ms S IN I/aVL/V4/V5/V6] LEFT ANTERIOR FASCICULAR BLOCK [QRS AXIS <= -45, QR IN I, RS IN II] POSSIBLE LEFT VENTRICULAR HYPERTROPHY [VOLTAGE CRITERIA PLUS LAE OR QRS WIDENING] POSSIBLE SEPTAL MYOCARDIAL INFARCTION , OF INDETERMINATE AGE [30 ms Q WAVE IN V1/V2] Compared to ECG 06/15/2022 22:14:55 Sinus arrhythmia no longer present Myocardial infarct finding still present Electronically Signed On 03-04-2023 16:59:04 CDT by Crystal Green M.D. [id number]
--- NOTE | 2023-03-04 14:11 | XRR_ITS ---
PROCEDURE INFORMATION: Exam: XR Chest Exam date and time: 03/04/2023 2:28 PM Age: 72 years old Clinical indication: Angina and shortness of breath; Additional info: Chest pain TECHNIQUE: Imaging protocol: Radiologic exam of the chest. Views: 1 view. COMPARISON: CR XR chest 1V portable [id number] 06/15/2022 3:13 PM FINDINGS: Lungs: Unremarkable. No consolidation. Pleural spaces: Unremarkable. No pleural effusion. No pneumothorax. Heart/Mediastinum: Unremarkable. No cardiomegaly. Bones/joints: Unremarkable. XR/XR chest 1V portable [id number] IMPRESSION: No acute findings.
--- NOTE | 2023-03-04 14:19 | ED_ITS ---
HPI - Chest Pain General: Chief Complaint: Chest Pain Stated Complaint: SOB, chest pressure Time Seen by Provider: 03/04/23 14:11 Source: patient Mode of arrival: EMS History of Present Illness: 32-year-old female presents emergency room planing of chest pain that began while at rest made her short of breath she had no diaphoresis nausea or vomiting. She has not had episodes like this before. It began about an hour prior to arrival. She was given aspirin in route. She has no known history of coronary disease but did states she had some kind of cardiac procedure done several years ago. She said they put her to sleep and did something to her heart. She does have a history of atrial fibrillation. She was hospitalized May of last year had a normal sestamibi stress test at that time. She was in atrial fibrillation and SVT intermittently but did not require any cardioversion according to the discharge summary. She denies episodes of chest pain prior to today. MD complaint: chest pain Onset (ago): hour(s) Timing of current episode: episodic Prior episodes: No Onset: during rest Pain location: substernal Pain radiation: none Severity: mild Quality: tightness, aching and heaviness Relieving factors: nothing Exacerbating factors: nothing Associated symptoms: Deny abdominal pain, diaphoresis, dyspnea, fever(s), leg edema, nausea, palpitations, sense of impending doom, syncope or vomiting Review of Systems Const: Denies: fever(s), chills or diaphoresis ENMT: Denies: throat pain, ear or mastoid pain, nasal discharge or nasal congestion Card: Reports: chest pain and irregular heart rhythm; Denies: palpitations, edema, swelling of feet/ankles or syncope Resp: Denies: dyspnea, productive cough or non-productive cough GI: Denies: abdominal pain, nausea or vomiting : Denies: flank pain, difficulty voiding, dysuria, urinary frequency or urin steve urgency Skin/Breast: Denies: rash or pruritus PFSH ED PFSH: Medical History Atrial fibrillation Dementia Family History Other Stroke Physical Exam Const: GENERAL APPEARANCE: cooperative and comfortable ORIENTATION/CONSCIOUSNESS: Yes awake, Yes oriented to person, Yes oriented to place and Yes oriented to time HENMT: COMMON NORMALS: normocephalic, atraumatic and hearing grossly normal bilaterally HEAD & SCALP: normocephalic and atraumatic Resp: COMMON NORMALS: normal respiratory effort, No retractions, No use of accessory muscles and clear to auscultation bilaterally AUSCULTATION: clear to auscultation bilaterally Cardio: COMMON NORMALS: regular rate and No murmurs present (Cardio) RATE: regular rate RHYTHM: abnormal rhythm irregularly irregular GI: COMMON NORMALS: Soft to palpation and No hepatosplenomegaly present AUSCULTATION: Yes normoactive bowel sounds PALPATION: Yes Soft to palpation, No Tenderness to palpation present (GI), No Guarding due to palpation present (GI) and Yes No hepatosplenomegaly present Extremity: COMMON NORMALS: normal to inspection, capillary refill normal, no clubbing, cyanosis or edema, no calf tenderness and no pedal edema Neuro: SENSORIUM/ORIENTATION: Yes oriented to person, Yes oriented to place and Yes oriented to time Skin: COMMON NORMALS: no rashes or lesions noted GENERAL SKIN EXAM: no rashes or lesions noted Course Vital Signs: Vital signs: Vital Signs Temperature 97.7 F 03/04/23 14:08 Pulse Rate 77 03/04/23 16:49 Respiratory Rate 17 03/04/23 16:47 Blood Pressure 134/72 03/04/23 16:49 Pulse Oximetry 95 03/04/23 16:47 Oxygen Delivery Me thod Room Air 03/04/23 16:47 MDM - Chest Pain Medical Decision Making Positive delta troponin +5. Patient still has mild chest heaviness but states it is much improved we will apply topical nitro placed in observation for fu rther evaluation she had a stress test in May 2022 which was read as negative. She has been given aspirin. Medical Records I reviewed the patient's medical records. Lab Data I reviewed the patient's lab results. 03/04/23 13:35 03/04/23 13:35 Radiology Impressions Chest X-Ray 03/04/23 14:11 IMPRESSION: No acute findings. Laboratory Results WBC 8.0 10^3/uL (4.0-10.0) 03/04/23 13:35 RBC 5.34 10^6/uL (4.1-5.3) H 03/04/23 13:35 Hgb 15.1 g/dL (11.5-15.3) 03/04/23 13:35 Hct 46.6 % (37.0-47.0) 03/04/23 13:35 MCV 87.3 fl (81-99) 03/04/23 13:35 MCH 28.3 pg (28.0-34.0) 03/04/23 13:35 MCHC 32.4 g/dL (30.0-36.0) 03/04/23 13:35 RDW 14.6 % (12.1-15.1) 03/04/23 13:35 Plt Count 329 10^3/cmm (130-400) 03/04/23 13:35 MPV 10.7 fL (7.4-10.4) H 03/04/23 13:35 Neut % (Auto) 70.3 % 03/04/23 13:35 Lymph % (Auto) 20.1 % 03/04/23 13:35 [place] % (Auto) 7.2 % 03/04/23 13:35 Eos % (Auto) 1.5 % 03/04/23 13:35 Baso % (Auto) 0.5 % 03/04/23 13:35 Neut # (Auto) 5.60 10^3/uL (1.8-7.7) 03/04/23 13:35 Lymph # (Auto) 1.6 10^3/uL (0.8-4.8) 03/04/23 13:35 [place] # (Auto) 0.6 10^3/uL (0.2-0.9) 03/04/23 13:35 Eos # (Auto) 0.1 10^3/uL (0.0-0.8) 03/04/23 13:35 Baso # (Auto) 0.0 10^3/uL (0.0-0.1) 03/04/23 13:35 Nucleated RBC % (auto) 0 % 03/04/23 13:35 Nucleated RBCs # 0.0 /100WBC 03/04/23 13:35 PT 14.20 SECONDS (12.1-14.9) 03/04/23 13:35 INR 1.07 (0.8-1.2) 03/04/23 13:35 Sodium 142 mmol/L (136-145) 03/04/23 13:35 Potassium 3.9 mmol/L (3.5-5.1) 03/04/23 13:35 Chloride 104 mmol/L (98-107) 03/04/23 13:35 Carbon Dioxide 22 mmol/L (22-29) 03/04/23 13:35 Anion Gap 19.9 (5-19) H 03/04/23 13:35 BUN 16 mg/dL (8-23) 03/04/23 13:35 Creatinine 0.8 mg/dL (0.5-0.9) 03/04/23 13:35 GFR Calculation Not Reportable 03/04/23 13:35 Glucose 119 mg/dL (65-115) H 03/04/23 13:35 Calculated Osmolality 296 mOsm/kg (285-295) H 03/04/23 13:35 Calcium 9.8 mg/dL (8.5-10.5) 03/04/23 13:35 Total Bilirubin 0.3 mg/dL (0.15-1.2) 03/04/23 13:35 AST 18 U/L (0-32) 03/04/23 13:35 ALT 17 U/L (0-33) 03/04/23 13:35 Alkaline Phosphatase 136 U/L (35-105) H 03/04/23 13:35 Troponin T Baseline 17 ng/L (0-10) H 03/04/23 13:35 Troponin T 120 Minute 22.17 ng/L (0-10) H 03/04/23 15:10 Delta Troponin T 5.17 ABS# (0-10) 03/04/23 15:10 Total Protein 6.7 g/dL (6.6-8.7) 03/04/23 13:35 Albumin 4.3 g/dL (3.5-5.2) 03/04/23 13:35 Globulin 2.4 g/dL (1.3-4.6) 03/04/23 13:35 Discharge Plan Discharge Patient Disposition: Placed in Observation Admit Provider: Jeremias Salmeron Clinical Impression: Unstable angina pectoris Condition: Stable Coding Level of Care Code ED [employer] 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
--- NOTE | 2023-03-04 14:34 | PC.PHAR ---
PT DOES NOT KNOW WHAT MEDS SHE TAKES. DAUGHTER (ALIVIA) TAKES CARE OF MEDS. NO PHONE NUMBER ON FILE BUT SHE IS ON HER WAY HERE.
[2023-03-04 14:35] LABS: Basophils % 0.5 %; Eosinophils # 0.1 10^3/uL (0.0-0.8); Eosinophils % 1.5 %; Hematocrit 46.6 % (37.0-47.0); Hemoglobin 15.1 g/dL (11.5-15.3); Lymphocytes # 1.6 10^3/uL (0.8-4.8); Lymphocytes % 20.1 %; Mean Corpuscular HGB Conc 32.4 g/dL (30.0-36.0); Mean Corpuscular Hemoglobin 28.3 pg (28.0-34.0); Mean Corpuscular Volume 87.3 fl (81-99); Mean Platelet Volume 10.7 fL (7.4-10.4); Monocytes # 0.6 10^3/uL (0.2-0.9); Monocytes % 7.2 %; Neutrophils % 70.3 %; Nucleated Red Blood Cells % 0 %; Platelet Count 329 10^3/cmm (130-400); Red Blood Count 5.34 10^6/uL (4.1-5.3); Red Cell Distribution Width 14.6 % (12.1-15.1)
[2023-03-04 14:46] LABS: INR 1.07 (0.8-1.2); Troponin(5th) Baseline 17 ng/L (0-10)
[2023-03-04 14:48] LABS: Alanine Aminotransferase 17 U/L (0-33); Albumin Level 4.3 g/dL (3.5-5.2); Alkaline Phosphatase 136 U/L (35-105); Anion Gap 19.9 (5-19); Aspartate Amino Transferase 18 U/L (0-32); Blood Urea Nitrogen 16 mg/dL (8-23); Calcium 9.8 mg/dL (8.5-10.5); Carbon Dioxide 22 mmol/L (22-29); Chloride 104 mmol/L (98-107); Globulin 2.4 g/dL (1.3-4.6); Glucose 119 mg/dL (65-115); Osmolality Calculated 296 mOsm/kg (285-295); Potassium 3.9 mmol/L (3.5-5.1); Sodium 142 mmol/L (136-145); Total Bilirubin 0.3 mg/dL (0.15-1.2); Total Protein 6.7 g/dL (6.6-8.7)
--- NOTE | 2023-03-04 15:22 | PC.PHAR ---
MEDICATIONS VERIFIED WITH MAIL ORDER PHARMACY.
[2023-03-04 15:48] LABS: Troponin 5 2HR 22.17 ng/L (0-10)
[2023-03-04 15:51] LABS: Troponin 5 2HR Delta 5.17 ABS# (0-10)
--- NOTE | 2023-03-04 16:22 | ECG_ITS ---
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 Measurements Intervals [place] Rate: 84 P: 14 PA: 140 QRS: -45 QRSD: 133 T: 65 QT: 414 QTc: 490 Interpretive Statements SINUS RHYTHM WITH OCCASIONAL SUPRAVENTRICULAR PREMATURE COMPLEXES RIGHT BUNDLE BRANCH BLOCK LEFT ANTERIOR FASCICULAR BLOCK [QRS AXIS <= -45, QR IN I, RS IN II] LEFT VENTRICULAR HYPERTROPHY AND ST-T CHANGE [VOLTAGE CRITERIA PLUS ST/T ABNORMALITY] POSSIBLE SEPTAL MYOCARDIAL INFARCTION , OF INDETERMINATE AGE [30 ms Q WAVE IN V1/V2] Compared to ECG 03/04/2023 14:26:21 ST (T wave) deviation now present Myocardial infarct finding still present Electronically Signed On 03-04-2023 17:12:09 CDT by Crystal Green M.D. [id number]
[2023-03-04] MEDS: nitroglycerin 1 gm/inch oint Pkt 0.5 INCH TOPICAL (16:49)
--- NOTE | 2023-03-04 17:07 | PC.NURSE ---
Attempted to contact family at pt request. No answer at this time.
--- NOTE | 2023-03-04 17:42 | PC.NURSE ---
pt consented to staff collecting..... $470 dollars from pt. Ennis counted with Kaylie Carbajal RN...... in front of pt. Ennis counted again in U med room in front of security camera. Ennis was then locked in med bin in [employer].
--- NOTE | 2023-03-04 17:47 | USCV_ITS ---
Brittany Harrington Age: 72 Gender: F : 1950 Exam Date: 03/04/2023 22:00 Ordering Phys: Jeremias Salmeron MD Technologist: CT Exam Location: [facility] [place]_ Indication: cp BP: 142 / 94 HR: 59 Rhythm: Sinus Technical Quality: Adequate MEASUREMENTS (Male / Female) Normal Values 2D ECHO LVOT Diameter 2.0 cm LV Ejection Fraction MOD 2C 35.4 % LV Ejection Fraction 2C AL 38.3 % LA Diameter 4.4 cm Aorta at Sinotubular Diameter 2.5 cm M-MODE Aortic Annulus Diameter 2.9 cm LA Ao Ratio MM 1.6 MV E Point Septal Separation 1.0 cm FINDINGS Left Ventricle This study is limited to two-dimensional and a few M-mode stills. The ventricle is probably normal in size and function. No obvious wall motion disturbances. Diastolic function not evaluated. Estimated ejection fraction 60%. Perhaps mild left ventricular hypertrophy. No Doppler exam performed. Right Ventricle Normal right ventricular size and systolic function. Right Atrium The right atrium is normal in size. Left Atrium The left atrium is normal in size. Mitral Valve Structurally normal mitral valve. Aortic Valve Structurally normal trileaflet aortic valve. Mild aortic valve calcification. Tricuspid Valve Structurally normal tricuspid valve. Pulmonic Valve Structurally normal pulmonic valve. Pericardium Normal pericardium without effusion. Aorta Normal ascending aorta dimension. IVC The inferior vena cava appears normal. CONCLUSIONS This study is limited to two-dimensional and a few M-mode stills. The ventricle is probably normal in size and function. No obvious wall motion disturbances. Diastolic function not evaluated. Estimated ejection fraction 60%. Perhaps mild left ventricular hypertrophy. No Doppler exam performed. Structurally normal trileaflet aortic valve. Mild aortic valve calcification. No change from the previous study dictated 06/17/2022 Dr. Arnold Smalls MD (Electronically Signed) Final Date: 05 March 2023 10:22 S
--- NOTE | 2023-03-04 18:08 | PM.HP ---
Providers/Chief Complaint Admitting Physician: Jeremias Salmeron MD Primary Care Provider: DEONNA SERVIN MD Chief Complaint: SOB, chest pressure History of Present Illness Brittany Harrington is a 72 year old female with a past medical history significant for atrial fibrillation, hypertension, and dementia who presents emergency department with chest pain. She reports onset earlier today. She is describes the pain as on both sides of her chest. This sensation is pressure-like. It radiates to the right side of her neck. Denies aggravating factors. She received nitroglycerin in the emergency department which she states helped the pain. She does report prior episodes of pain that were similar that were less in severity. She rates today's pain up to a 5 out of 10. Upon my evaluation, she is currently pain-free. She denies a known history of coronary artery disease. She denies prior cardiac surgery or stents. She was admitted in May 2022 when cardiac stress testing was negative. Echocardiogram showed diastolic dysfunction and mild LVH. She has history of hypertension. Review of Systems Narrative: A complete review of systems was obtained and is negative except as stated in HPI. Medications/Allergies Home Medications Medication Instructions Recorded Confirmed Last Taken Type amlodipine 2.5 mg tablet 2.5 mg PO DAILY 06/15/22 03/04/23 06/15/22 History donepezil 5 mg tablet 5 mg PO BEDTIME 06/15/22 03/04/23 06/14/22 History fluoxetine 10 mg tablet 30 mg PO DAILY 06/15/22 03/04/23 06/15/22 History hydralazine 50 mg tablet 75 mg PO BID 06/15/22 03/04/23 06/15/22 History metoprolol tartrate 100 mg tablet 100 mg PO BID 03/04/23 03/04/23 Unknown History Allergies Allergy/AdvReac Type Severity Reaction Status Date / Time codeine Allergy Unknown Unknown Verified 06/15/22 17:59 PFSH Acute PFSH: Medical History (Updated 03/04/23 @ 18:34 by Jeremias Salmeron MD) Atrial fibrillation Dementia Hypertension Moderate tobacco use disorder, in sustained remission Surgical History (Updated 03/04/23 @ 18:34 by Jeremias Salmeron MD) H/O: hysterectomy Family History (Updated 03/04/23 @ 18:10 by Jeremias Salmeron MD) Daughter Stroke Social History (Updated 03/04/23 @ 18:34 by Jeremias Salmeron MD) Smoking and tobacco status: former smoker Alcohol intake: never Substance/Drug Use: never Vitals/I&O/Wt Last Vital Signs Temp 98.6 F 03/04/23 17:44 Pulse 78 03/04/23 17:08 Resp 12 03/04/23 17:08 BP 139/72 03/04/23 17:08 Pulse Ox 95 03/04/23 17:08 O2 Del Method Room Air 03/04/23 17:35 Physical Exam Narrative: General: Patient is awake and alert. Very pleasant. Head: Normocephalic. Atraumatic. EOM intact. Neck: No JVD. Cardiovascular: RRR. No gallops. No murmurs. No peripheral edema. Lungs: Clear to auscultation, no use of accessory muscles, no crackles or wheezes. Skin: No jaundice. No rashes. Abdomen: Normal bowel sounds, abdomen soft and nontender. Extremities: No cyanosis or clubbing. Musculoskeletal: No swollen or erythematous joints. Neurological: Moves all 4 extremities. No myoclonus. Data 03/04/23 13:35 03/04/23 13:35 A&P Assessment and plan (1) Elevated troponin: Associated with chest pain concerning for unstable angina Elevated troponin with intermediately elevated delta troponin Trend troponins Low threshold to initiate heparin drip Loaded with aspirin in the ED Continuous telemetry monitoring Lipids and A1c ordered N.p.o. after midnight Cardiac stress testing requested, may need to reconsider if troponin elevation is significant (2) Chest pain: Management as above (3) Hypertension: Continue home Norvasc Continue home metoprolol Continue home hydralazine (4) Atrial fibrillation: Appears to be paroxysmal Continuous telemetry monitoring Continue home metoprolol Does not appear to be on home anticoagulation (5) Dementia: High risk for delirium Continue home donepezil Plan DVT: Lovenox CODE STATUS: Full code Attestations Medical Necessity Statement*: Patient presents with chest pain with expected hospitalization for work-up and treatment not to cross 2 midnights. Coding Level of Care Code Acute Code for Chg Fwd Diagnoses Elevated troponin R77.8 Chest pain R07.9 Hypertension I10 Atrial fibrillation I48.91 Dementia F03.90
[2023-03-04 18:33] LABS: Chol HDL Ratio 3.71 mg/dL (0.0-4.40); Cholesterol 208 mg/dL (0-200); HDL Cholesterol 56 mg/dL (60-100); LDL Cholesterol Calculated 126 mg/dL (50-129); LDL HDL Ratio 2.25 RATIO (0.00-3.22); Triglycerides 132 mg/dL (0-150)
[2023-03-04] MEDS: acetaminophen 325 mg Tablet 650 MG PO (18:33)
[2023-03-04] MEDS: hyDRALAzine 50 mg Tablet 75 MG PO (18:34)
[2023-03-04] MEDS: metoprolol tartrate 50 mg Tablet 100 MG PO (18:34)
[2023-03-04 19:50] LABS: Estmated Average Glucose 97
--- NOTE | 2023-03-04 20:11 | ECG_ITS ---
[facility] Test Date: 2023-03-04 Pat Name: Brittany Harrington Department: Room: 111 Gender: Female Director Mobile: : 1950 Requested By: Santi Lal Order Number: [id number] Reading MD: Arnold Smalls M.D. Measurements Intervals [place] Rate: 54 P: -12 IN: 155 QRS: -46 QRSD: 136 T: -19 QT: 482 QTc: 460 Interpretive Statements SINUS BRADYCARDIA WITH SINUS ARRHYTHMIA RIGHT BUNDLE BRANCH BLOCK [120+ ms QRS DURATION, UPRIGHT V1, 40+ ms S IN I/aVL/V4/V5/V6] LEFT ANTERIOR FASCICULAR BLOCK [QRS AXIS <= -45, QR IN I, RS IN II] VOLTAGE CRITERIA FOR LVH [MEETS CRITERIA IN ONE OF: R(aVL), S(V1), R(V5), R(V5/V6)+S(V1)] Compared to ECG 03/04/2023 16:22:14 Sinus rhythm no longer present ST (T wave) deviation no longer present Myocardial infarct finding no longer present Electronically Signed On 03-05-2023 14:46:18 CDT by Arnold Smalls M.D. [id number]
[2023-03-04] MEDS: donepezil 5 MG Tablet PO (20:39)
[2023-03-04] MEDS: enoxaparin 40 mg/0.4 mL Syringe SUBCUT (20:40)
[2023-03-04 21:39] LABS: Troponin 5 6HR 30.27 ng/L (0-10)
[2023-03-04 21:46] LABS: Troponin 5 6HR Delta 13.27 ng/L (0-12)
[2023-03-05] VITALS (28 sets, daily range): BP systolic 80–186; BP diastolic 38–88; PULSE 48–77; RESP 9–25; TEMP 36.4–37.3; O2SAT 67–99
[2023-03-05 00:32] LABS: Bilirubin Urine Neg (Negative); Blood Urine Neg (Negative); Glucose Urine UA Norm (Normal); Ketones Urine Negative (Negative); Nitrate Urine Negative (Negative); Protein Urine Neg (Negative); Specific Gravity, Urine 1.001 (1.005-1.030); Urine Appearance Clear (CLEAR); Urine Color Light yellow (Yellow); pH Urine 5 (5-7)
[2023-03-05 00:33] LABS: Add Urine Culture? No; Bacteria Urine TRACE /hpf; Leukocyte Esterase Urine Trace (Negative); Squamous Epithelial Cell Urine 0-4 /hpf (0-5); Urobilinogen Urine Neg (Negative); WBC Urine 0-4 /hpf (0-5)
[2023-03-05 04:01] LABS: Blood Urea Nitrogen 16 mg/dL (8-23); Calcium 8.9 mg/dL (8.5-10.5); Carbon Dioxide 26 mmol/L (22-29); Chloride 109 mmol/L (98-107); Creatinine Clr Calc Pharmacy 67.2382; Glucose 102 mg/dL (65-115); Magnesium 1.9 mg/dL (1.7-2.3); Osmolality Calculated 297 mOsm/kg (285-295); Sodium 143 mmol/L (136-145)
[2023-03-05 04:03] LABS: Anion Gap 12.1 (5-19); Potassium 4.1 mmol/L (3.5-5.1)
--- NOTE | 2023-03-05 07:20 | PC.NURSE ---
late entry, notified Dr Veronica of 6 hr troponin with positive delta, Dr Yanes ordered stress test to be put on hold because pt may need angiogram, stated he would speak to day shift MD, [facility]
--- NOTE | 2023-03-05 07:31 | ECG_ITS ---
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 Measurements Intervals [place] Rate: 57 P: 34 IA: 168 QRS: -51 QRSD: 139 T: -20 QT: 502 QTc: 491 Interpretive Statements SINUS BRADYCARDIA WITH MARKED SINUS ARRHYTHMIA RIGHT BUNDLE BRANCH BLOCK [120+ ms QRS DURATION, UPRIGHT V1, 40+ ms S IN I/aVL/V4/V5/V6] LEFT ANTERIOR FASCICULAR BLOCK [QRS AXIS <= -45, QR IN I, RS IN II] MODERATE VOLTAGE CRITERIA FOR LVH, CONSIDER NORMAL VARIANT [MEETS CRITERIA IN ONE OF: R(aVL), S(V1), R(V5), R(V5/V6)+S(V1)] Compared to ECG 03/04/2023 22:38:28 No significant changes Electronically Signed On 03-05-2023 14:46:27 CDT by Arnold Smalls M.D. [id number]
[2023-03-05] MEDS: ondansetron 2 mg/ML SDV 2 mL 4 MG IVP (07:35)
[2023-03-05] MEDS: nitroglycerin 0.4 mg sublingual Tablet SUBLINGUAL ×3 (07:55→09:03)
--- NOTE | 2023-03-05 07:58 | PC.NURSE ---
chest heaviness Pt reported of chest discomfort rated at 5/10 scale. described it as heaviness and pounding headache. pt is feeling nauseated. HR-upper 50s, SB. BP-191/84. EKG taken per protocol. Zofran IVP given as PRN order. Notified Dr Salmeron via phone. 0729- Nitro SL 1 tab given per chest pain protocol. BP check is 145/83. chest discomfort is down to 3 per pt scale. pt now reports of neck pain.
--- NOTE | 2023-03-05 08:21 | PM.CONSULT ---
Providers/Reason For Consult Consulting Physician/Specialty*: Hadley Rodriguez MD/ Cardiology Reason for Consult*: NSTEMI Requesting Physician: Dr Salmeron Attending Physician: Jeremias Salmeron MD Primary Care Provider: DEONNA SERVIN MD History of Present Illness History of Present Illness Brittany Harrington is a 72 year old female with past medical history of hypertension and atrial fibrillation who presented to hospital with significant substernal chest pain. She states it was radiating to the jaw and arms. It was on and off. Each episode lasting for a few minutes. No chest pain currently. Troponin was 17 at baseline and trended upto 30 at 6 hours. EKG shows normal sinus rhythm with right bundle branch block. Blood pressure is elevated. Review of Systems Const: Denies: fever(s), chills or diaphoresis ENMT: Denies: throat pain, ear or mastoid pain, nasal discharge or nasal congestion Card: Reports: chest pain and irregular heart rhythm; Denies: palpitations, edema, swelling of feet/ankles or syncope Resp: Denies: dyspnea, productive cough or non-productive cough GI: Denies: abdominal pain, nausea or vomiting : Denies: flank pain, difficulty voiding, dysuria, urinary frequency or urinary urgency Skin/Breast: Denies: rash or pruritus Medications/Allergies Home Medications Medication Instructions Recorded Confirmed Last Taken Type amlodipine 2.5 mg tablet 2.5 mg PO DAILY 06/15/22 03/04/23 06/15/22 History donepezil 5 mg tablet 5 mg PO BEDTIME 06/15/22 03/04/23 06/14/22 History fluoxetine 10 mg tablet 30 mg PO DAILY 06/15/22 03/04/23 06/15/22 History hydralazine 50 mg tablet 75 mg PO BID 06/15/22 03/04/23 06/15/22 History metoprolol tartrate 100 mg tablet 100 mg PO BID 03/04/23 03/04/23 Unknown History Allergies Allergy/AdvReac Type Severity Reaction Status Date / Time codeine Allergy Unknown Unknown Verified 06/15/22 17:59 Current Medications Generic Name Dose Route Start Last Admin Trade Name Freq PRN Reason Stop Dose Admin Acetaminophen 650 mg 03/04/23 17:15 03/04/23 18:33 Acetaminophen 325 Mg Tablet PO 650 mg Q6H PRN Administration Mild/Mod Pain Or Temp >/= 101 Donepezil HCl 5 mg 03/04/23 21:00 03/04/23 20:39 Donepezil 5 Mg Tablet PO 5 mg BEDTIME BRANDI Administration Enoxaparin Sodium 40 mg 03/04/23 21:00 03/04/23 20:40 Enoxaparin 40 Mg/0.4 Ml Syringe SUBCUT 40 mg BEDTIME BRANDI Administration Hydralazine HCl 75 mg 03/04/23 18:00 03/04/23 18:34 Hydralazine 50 Mg Tablet PO 75 mg BID BRANDI Administration Metoprolol Tartrate 100 mg 03/04/23 18:00 03/04/23 18:34 Metoprolol Tartrate 50 Mg Tablet PO 100 mg BID BRANDI Administration Nitroglycerin 0.4 mg 03/05/23 06:18 03/05/23 07:55 Nitroglycerin 0.4 Mg Sublingual Tablet SUBLINGUAL 03/06/23 06:17 0.4 mg Q5M PRN Administration CHEST PAIN Ondansetron HCl 4 mg 03/05/23 06:18 03/05/23 07:35 Ondansetron 2 Mg/Ml Sdv 2 Ml IVP 4 mg Q2M PRN Administration NAUSEA PFSH Acute PFSH: Medical History Atrial fibrillation Dementia Hypertension Moderate tobacco use disorder, in sustained remission Surgical History H/O: hysterectomy Family History Daughter Stroke Social History Smoking and tobacco status: former smoker Alcohol intake: never Substance/Drug Use: never Vitals/I&O/Wt Last Vital Signs Temp 99.1 F 03/05/23 07:46 Pulse 54 L 03/05/23 07:46 Resp 13 03/05/23 07:46 BP 186/75 03/05/23 07:46 Pulse Ox 99 03/05/23 07:46 O2 Del Method Room Air 03/05/23 07:46 03/04/23 03/05/23 03/05/23 22:59 06:59 14:59 Intake Total 222 / 222 480 / 702 Output Total 200 / 200 Balance 480 / 502 Weight last 48 hrs Weight 190 lb 8 oz Weight 192 lb Physical Exam Narrative: GENERAL: Patient is alert, awake and oriented x3. [] NECK: No jugular vein distension. [] HEENT: No cyanosis. No icterus. No pallor. [] HEART: Regular S1 and S2. Grade 3/6 systolic murmur. LUNGS: Clear to auscultate bilaterally. [] CENTRAL NERVOUS SYSTEM: Grossly nonfocal. [] EXTREMITIES: Lower extremities with 1+ edema bilaterally. Data 03/04/23 13:35 03/05/23 02:40 A&P Assessment and plan (1) NSTEMI (non-ST elevated myocardial infarction): (2) Hypertension: (3) SVT (supraventricular tachycardia): (4) Atrial fibrillation: (5) Dementia: Plan Patient has presented with typical chest pain symptoms and troponin trended up significantly. She still has on and off chest pain. We will proceed with coronary angiogram with possible percutaneous coronary intervention. Risks and benefits of the procedure discussed in detail. I also discussed the procedure with the patient's family. NPO for now. Continue current medications Echocardiogram. Thank you for involving us with care of this patient. We will continue to follow. Please call with questions Consult Attestations Medical Necessity Statement: Care expected to cross 2 midnights. Coding Level of Care Code Acute Code for [facility] Diagnoses NSTEMI (non-ST elevated myocardial infarction) I21.4 Hypertension I10 SVT (supraventricular tachycardia) I47.1 Atrial fibrillation I48.91 Dementia F03.90
--- NOTE | 2023-03-05 09:40 | XACV_ITS ---
Exam Room: [facility] Ht: 165 cm Wt: 86 kg BSA: 2.02 m2 Gender: Female : 1950 Any Known Allergies: Codeine Exam Priority: Routine Indication(s): - Non-ST elevation [place] Procedure(s): Procedure Description: Diagnostic procedure Procedure Description: Left Heart Catheterization Procedure Description: Left ventriculography Procedure Description: Coronary Angiography Diagnostic Cath Status: Urgent Diagnostic Findings * Left Anterior Descending has no significant disease. * Circumflex has no significant disease. * Left Main has no disease. * Proximal Right Coronary Artery: luminal irregularities 20% stenosis, DULCE: 3 flow. * Coronary angiography shows right dominance. Conclusions 1. Non-obstructive Coronary artery disease. 2. Normal left ventricular systolic function. Ejection fraction of 60%. Recommendations * Aggressive risk factor modification. * Outpatient cardiology follow up in 4 weeks. Ventriculography Ejection Fraction: 60.0 % Pressures Phase:Rest AO : 168 / 75 ( 111 ) @ 11:27:00 AM 165 / 77 ( 115 ) @ 11:27:00 AM LV : 152 / 0 / 16 @ 11:23:00 AM 158 / 0 / 16 @ 11:26:00 AM 172 / 6 / 25 @ 11:27:00 AM 164 / 8 / 25 @ 11:27:00 AM Valves Phase:DefaultPhase AV : 0.0 @ 10:34:52 AM AV Mean Gradient: 0.0 @ 10:34:52 AM Clinical Evaluation EBL: 5mL-10mL Procedural Details Current Diagnosis : NSTEMI. Pre-Procedure Time Out. Identified patient by full name and date of as verbalized by the patient/guarantor. Does the consent match the physician's order: Yes. Accurate & Complete Informed Consent: Yes. Inpatient/Outpatient History & Physical on Chart: Yes. If H&P is completed, is and addenduem needed: No; If yes, is the addendum complete: N/A. Visualize and Verify Site with Patient/Guarantor: N/A. Relevant Radiology Images available: Yes. Pre-op teaching completed and patient verbalized understanding. The risks, benefits, and alternatives of sedation and/or procedure were discussed by physician. The patient agrees to continue. Procedure started. [facility] Clinical Fraility Score: 4: Vulnerable. Medical Associate Indications: Other; NSTEMI. Chest Pain Symptom Assessment: Typical Angina Symptoms. Cardiovascular Instability: No, STABLE. Correct patient, site and procedure confirmed by cath team. Current diagnosis: NSTEMI. PERRLA. Strong, equal hand arbor end mainspring former bilaterally. Lungs clear x 5 lobes. IV Site on Arrival: 20 gauge in the left anticubital. IV Site on Arrival: Saline Lock. IV Fluids: 0.9% NaCl at KVO. 0 mL infused prior to labor relations teacher. Pre Procedural Pulses: bilateral posterior tibial was Doppled. Pre Procedural Pulses: bilateral dorsalis pedis was Doppled. Pre Procedural Pulses: bilateral radial was 3+. Oxygen started at 3liters/min via nasal canula. right groin was prepped with chloroprep then draped in the usual sterile fashion. right radial was prepped with chloroprep then draped in the usual sterile fashion. Physician notified. Physician arrived. Equipment: 5F - Radial. Cardiac Cath Pack. ACIST Manifold Kit Model BT 2000. Heparinized Saline (2 units/mL), 1000 mL bag. Baseline sample Acquired. HR: 33 BPM. Baseline sample Acquired. HR: 53 BPM. Physician scrubbed in. Immediate Pre-Procedure Time Out. Correct Patient: Yes; Correct Procedure: Yes; Correct Site: Yes; Correct Patient Position: Yes; Correct Supplies: Yes; Dried Flammable Prep: Yes; Blood Products Available: N/A;. Lidocaine 1% infiltrated to the right radial. Arterial access obtained. A 5 turkish TIG catheter in over wire. Multiple views taken of left coronary artery. Catheter redirected to the RCA. Multiple views taken of right coronary artery. Catheter removed over the exchange wire. A 5 turkish Angled Pig catheter in over wire. Catheter removed over the wire. A 5 turkish JR4 catheter in over wire. EDP Sample taken: LV 152/0,16; HR: 65 BPM; SpO2: 100%. Catheter removed over the wire. A 5 turkish Angled Pig catheter in over wire. EDP Sample taken: LV 158/0,16; HR: 65 BPM; SpO2: 100%. LV gram performed in [place] @ 10 mL/second for a total of 30 mL. Patient EF: Normal. EDP Sample taken: LV 172/6,25; HR: 76 BPM; SpO2: 100%. Pullback taken: LV 164/8,25; AO 168/75(111); Mean: 0mmHg, Peak to Peak: 0mmHg, SEP: 10sec/min; HR: 68 BPM; SpO2: 100%. Catheter removed over the wire. Phisician review of films. Physician scrubbed out. A TR Band was successful obtaining hemostatsis at the Right Radial artery insertion site. TR band placed. Hemostasis obtained. Post Procedure: Pulses reassessed and unchanged. PERRLA. Strong, equal hand arbor end mainspring former bilaterally. No VTE prophylaxis required. Medication waste: Lido- 2 ml. Nitro- 49.8 mg Heparin- 1000 units Fentanyl 25 mcg. Total IV fluids: 38 mL. Fluoro: 7:01. Contrast type used: Visipaque 320 mgI/mL, 100 mL bottle. [id number]. Post-op diagnosis: Non obstuctive CAD. Complications: None. Estimated blood loss: 5mL-10mL. Responsiveness - Normal response to verbal stimuli; alert and oriented, PERRLA. Airway - Unaffected, no intervention required; spontaneous ventilation. Circulation: W/N/L, pulses unchanged. Nausea/Vomiting: No. Procedure completed. Patient transferred by bed to CPRU. Access Site Site: Right Radial artery Sheath Size: 6 Fr Hemostasis Method: TR Band Hemostasis Success: Successful Procedure Medications Start: 10:04 AM Stop: 10:04 AM Medication: Versed Amount: 1 mg Route: I.V. Start: 10:04 AM Stop: 10:04 AM Medication: Fentanyl Amount: 50 mcg Route: I.V. Start: 10:09 AM Stop: 10:09 AM Medication: Versed 1 mg and Fentanyl 25 mcg Amount: 1 Route: I.V. Start: 10:10 AM Stop: 10:10 AM Medication: Nitrogylcerin Amount: 200 mcg Route: I.A. Start: 10:12 AM Stop: 10:12 AM Medication: Heparin Amount: 5000 units Route: I.V. I, the attending physician, have reviewed and verified all procedure medications. Yes, all medications given per verbal order History/Risk Factors Hypertension: Yes Dyslipidemia: No Peripheral Arterial Disease (PAD): No Myocardial Infarction (KS): No Obesity: No Renal Disease: No Tobacco Use: Former Prior Interventions PCI: No CABG: No Valve Surgery: No Report Signatures Finalized by Hadley Rodriguez MD on 03/18/2023 10:21 AM
--- NOTE | 2023-03-05 10:04 | W.PM.OPSUD ---
Surgery/Procedure H&P Update DATE OF PROCEDURE: March 05, 2023 DATE H&P PERFORMED: 03/05/23 H&P UPDATE INFORMATION: I have reviewed H&P completed within last 30 days, I have examined patient prior to procedure and No changes to prior documentation PREOP DIAGNOSIS: NSTEMI PRIMARY INDICATION FOR PROCEDURE: NSTEMI PLANNED PROCEDURE: Left heart cath with possible percutaneous coronary intervention PATIENT REASSESSED PRIOR TO SEDATION, WITH NO CHANGE NOTED: Yes PHYSICAL EXAM: alert, oriented x 3, clear to auscultation bilaterally and regular rate & rhythm AIRWAY EVAL/ANESTHESIA PLAN: normal airway, ASA III, Local Anesthesia, Risks, benefits & alternatives of sedation and/or procedure discussed and Patient agrees to continue as planned
--- NOTE | 2023-03-05 11:11 | PC.NURSE ---
1105: Transfer orders received. TR band in place to patient?s right wrist, no drainage or hematoma. Vitals stable. No c/o pain or discomfort. Report given to JOSEPHINE Abbasi. Patient transferred from CPRU to CSU. All belongings sent with patient.
[2023-03-05] MEDS: hyDRALAzine 50 mg Tablet 100 MG PO (12:06)
[2023-03-05] MEDS: amlodipine 5 mg Tablet PO (12:07)
[2023-03-05] MEDS: metoprolol tartrate 50 mg Tablet PO (12:07)
[2023-03-05] MEDS: fluoxetine 10 mg Capsule 30 MG PO (12:07)
--- NOTE | 2023-03-05 15:40 | P.DS_ITS ---
Discharge Providers Date of Admission: 03/04/23 17:19 Date of Discharge: March 05, 2023 Attending Provider at Admission: Jeremias Salmeron MD Attending Provider at Discharge: Jeremias Salmeron MD Consults: Cardiology Primary Care Provider: DEONNA SERVIN MD Diagnoses at Discharge Discharge Diagnosis (1) NSTEMI (non-ST elevated myocardial infarction): Status: Acute (2) Hypertension: Status: Acute (3) SVT (supraventricular tachycardia): Status: Acute (4) Atrial fibrillation: Status: Acute (5) Dementia: Status: Acute Reason for Visit Reason for Visit: SOB, chest pressure Hospital Course Hospital Course Brittany Harrington is a 72 year old female with a past medical history significant for atrial fibrillation, hypertension, and dementia who presents emergency department with chest pain. Patient found to have elevated troponin consistent with acute myocardial injury. Patient found to have hypertensive urgency with symptomatic chest pain. NSTEMI was considered which cardiology was consulted. She underwent cardiac catheterization which did not show obstructive lesions. Presentation consistent with a type II NSTEMI secondary to hypertensive urgency. Patient's antihypertensives were adjusted. Symptoms improved. She was discharged home with family. She is to keep a blood pressure log and follow-up with her primary care provider for titration of blood pressure meds. Physical Exam Narrative: General: Patient is awake. Appears fatigued. Head: Normocephalic. Atraumatic. EOM intact. Neck: No JVD. Cardiovascular: RRR. No gallops. No murmurs. Lungs: Clear to auscultation, no use of accessory muscles, no crackles or wheezes. Skin: No jaundice. No rashes. Abdomen: Normal bowel sounds, abdomen soft and nontender. Extremities: No cyanosis or clubbing. Neurological: Moves all 4 extremities. No myoclonus. Discharge Data Studies Completed and Pending Completed Studies During Hospitalization Category Date Time Status XR chest 1V portable [id number] Stat Exams 03/04/23 14:11 Completed CV. echo limited [id number] Routine Ultrasound 03/04/23 17:47 Completed Pending at discharge Category Date Time Status CAR SEAT UPHOLSTERER request for service Routine Exams 03/05/23 09:40 Taken Cardiac Stress Test MIBI [Sestamibi Stress Test Request Exams 03/04/23 17:46 Ordered ] Routine Radiology Impressions Chest X-Ray 03/04/23 14:11 IMPRESSION: No acute findings. Laboratory Results WBC 8.0 10^3/uL (4.0-10.0) 03/04/23 13:35 RBC 5.34 10^6/uL (4.1-5.3) H 03/04/23 13:35 Hgb 15.1 g/dL (11.5-15.3) 03/04/23 13:35 Hct 46.6 % (37.0-47.0) 03/04/23 13:35 MCV 87.3 fl (81-99) 03/04/23 13:35 MCH 28.3 pg (28.0-34.0) 03/04/23 13:35 MCHC 32.4 g/dL (30.0-36.0) 03/04/23 13:35 RDW 14.6 % (12.1-15.1) 03/04/23 13:35 Plt Count 329 10^3/cmm (130-400) 03/04/23 13:35 MPV 10.7 fL (7.4-10.4) H 03/04/23 13:35 Neut % (Auto) 70.3 % 03/04/23 13:35 Lymph % (Auto) 20.1 % 03/04/23 13:35 [place] % (Auto) 7.2 % 03/04/23 13:35 Eos % (Auto) 1.5 % 03/04/23 13:35 Baso % (Auto) 0.5 % 03/04/23 13:35 Neut # (Auto) 5.60 10^3/uL (1.8-7.7) 03/04/23 13:35 Lymph # (Auto) 1.6 10^3/uL (0.8-4.8) 03/04/23 13:35 [place] # (Auto) 0.6 10^3/uL (0.2-0.9) 03/04/23 13:35 Eos # (Auto) 0.1 10^3/uL (0.0-0.8) 03/04/23 13:35 Baso # (Auto) 0.0 10^3/uL (0.0-0.1) 03/04/23 13:35 Nucleated RBC % (auto) 0 % 03/04/23 13:35 Nucleated RBCs # 0.0 /100WBC 03/04/23 13:35 PT 14.20 SECONDS (12.1-14.9) 03/04/23 13:35 INR 1.07 (0.8-1.2) 03/04/23 13:35 Sodium 143 mmol/L (136-145) 03/05/23 02:40 Potassium 4.1 mmol/L (3.5-5.1) 03/05/23 02:40 Chloride 109 mmol/L (98-107) H 03/05/23 02:40 Carbon Dioxide 26 mmol/L (22-29) 03/05/23 02:40 Anion Gap 12.1 (5-19) 03/05/23 02:40 BUN 16 mg/dL (8-23) 03/05/23 02:40 Creatinine 0.7 mg/dL (0.5-0.9) 03/05/23 02:40 GFR Calculation Not Reportable 03/05/23 02:40 Glucose 102 mg/dL (65-115) 03/05/23 02:40 Estimat Average Glucose 97 03/04/23 13:35 Hemoglobin A1c 5.0 % (4.0-6.0) 03/04/23 13:35 Calculated Osmolality 297 mOsm/kg (285-295) H 03/05/23 02:40 Calcium 8.9 mg/dL (8.5-10.5) 03/05/23 02:40 Magnesium 1.9 mg/dL (1.7-2.3) 03/05/23 02:40 Total Bilirubin 0.3 mg/dL (0.15-1.2) 03/04/23 13:35 AST 18 U/L (0-32) 03/04/23 13:35 ALT 17 U/L (0-33) 03/04/23 13:35 Alkaline Phosphatase 136 U/L (35-105) H 03/04/23 13:35 Troponin T Baseline 17 ng/L (0-10) H 03/04/23 13:35 Troponin T 120 Minute 22.17 ng/L (0-10) H 03/04/23 15:10 Delta Troponin T 5.17 ABS# (0-10) 03/04/23 15:10 Troponin T Hi Sens 6Hr 30.27 ng/L (0-10) H 03/04/23 21:15 Troponin T Hi Sens 6Hr Delta 13.27 ng/L (0-12) H* 03/04/23 21:15 Total Protein 6.7 g/dL (6.6-8.7) 03/04/23 13:35 Albumin 4.3 g/dL (3.5-5.2) 03/04/23 13:35 Globulin 2.4 g/dL (1.3-4.6) 03/04/23 13:35 Triglycerides 132 mg/dL (0-150) 03/04/23 13:35 Cholesterol 208 mg/dL (0-200) H 03/04/23 13:35 LDL Cholesterol, Calc 126 mg/dL (50-129) 03/04/23 13:35 HDL Cholesterol 56 mg/dL (60-100) L 03/04/23 13:35 LDL/HDL Ratio 2.25 RATIO (0.00-3.22) 03/04/23 13:35 Cholesterol/HDL Ratio 3.71 mg/dL (0.0-4.40) 03/04/23 13:35 Urine Color Light yellow (Yellow) 03/05/23 00:15 Urine Appearance Clear (CLEAR) 03/05/23 00:15 Urine pH 5 (5-7) 03/05/23 00:15 Ur Specific [place] 1.001 (1.005-1.030) L 03/05/23 00:15 Urine Protein Neg (Negative) 03/05/23 00:15 Urine Glucose (UA) Norm (Normal) 03/05/23 00:15 Urine Ketones Negative (Negative) 03/05/23 00:15 Urine Blood Neg (Negative) 03/05/23 00:15 Urine Nitrate Negative (Negative) 03/05/23 00:15 Urine Bilirubin Neg (Negative) 03/05/23 00:15 Urine Urobilinogen Neg mg/dL (Negative) 03/05/23 00:15 Ur Leukocyte Esterase Trace (Negative) H 03/05/23 00:15 Urine RBC None /hpf (0-2) 03/05/23 00:15 Urine WBC 0-4 /hpf (0-5) H 03/05/23 00:15 Ur Squamous Epith Cells 0-4 /hpf (0-5) H 03/05/23 00:15 Amorphous Sediment Not Reportable 03/05/23 00:15 Urine Bacteria Trace /hpf (NONE) 03/05/23 00:15 Procedures Performed Heart cath Vitals Last Vital Signs Temp 98.4 F 03/05/23 11:57 Pulse 68 03/05/23 14:45 Resp 18 03/05/23 14:45 BP 106/42 03/05/23 14:45 Pulse Ox 95 03/05/23 12:30 O2 Del Method Room Air 03/05/23 11:57 Discharge Plan Discharge Patient Disposition: Home Condition: Stable Prescriptions: New amlodipine 5 mg Tablet 5 mg PO DAILY 30 Days Qty: 30 1RF hydralazine 50 mg Tablet 100 mg PO TID 30 Days Qty: 180 1RF Continued donepezil 5 mg Tablet 5 mg PO BEDTIME fluoxetine 10 mg Tablet 30 mg PO DAILY metoprolol tartrate 100 mg tablet 100 mg PO BID warfarin 2 mg Tablet 2 mg PO DAILY Discontinued amlodipine 2.5 mg Tablet 2.5 mg PO DAILY hydralazine 50 mg Tablet 75 mg PO BID Discharge Orders: Discharge Order (Routine); Ordered 03/05/23 Ordered By: Jeremias Salmeron Referrals: DEONNA SERVIN MD [Primary Care Provider] - Discharge Diet: Advance as tolerated, Usual diet and Low Salt Discharge Activity: Resume usual activity and Increase activity as tolerated Patient Instructions: Hydralazine (By mouth) (Apresoline), Amlodipine (By mouth), A-fib (Atrial Fibrillation) (DC), Hypertension (DC), Chest Pain Stoplight Activity Restrictions/Additional Instructions: 1. Increase activity as tolerated. 2. Keep blood pressure log. Be sure to measure blood pressure after medications, while seating for at least 5 minutes, at rest, legs uncrossed, and with cuff at heart level. 3. Take medications as prescribed. 4. Follow up with primary care physician in 1-2 week. Discharge Attestations Time Spent in Discharge Care*: greater than 30 min Status at Discharge: Cognitive status at discharge: cognitively intact , Behavioral status at discharge: cooperative , Quality Metrics Clinical Quality Measures [ No reported AMI, CVA or VTE this stay] Coding Level of Care Code Acute Code for [facility] Fwd Diagnoses NSTEMI (non-ST elevated myocardial infarction) I21.4 Hypertension I10 SVT (supraventricular tachycardia) I47.1 Atrial fibrillation I48.91 Dementia F03.90
--- NOTE | 2023-03-05 16:03 | PC.NURSE ---
notified case mgt regarding pt's housing notified renetta this morning from case mgt that pt stated her house is put on sale and her dgtr is not in good health due to her medical problems. her son in law ethel is the one helping them find housing near [place]? Son in law verified this situation. Per case mgt, dgtr will come and take her home. son in law stated pt takes warfarin 2 mg at home. dgtr is the one setting up her home meds. son in law wants [facility] in [place] for any new meds.
== END 2023-03-05 16:57 | disposition home or self-care (01) ==
LOC: ER 15:16 → CSU 17:02
PROVIDERS: Internal Medicine; Admitting Provider Internal Medicine; Emergency Provider Family Medicine; PCP Internal Medicine; Visit Provider Internal Medicine
DX: R07.9 Chest pain, unspecified (principal); R77.8 Other specified abnormalities of plasma proteins; I20.0 Unstable angina; I10 Essential (primary) hypertension; I25.2 Old myocardial infarction; I48.91 Unspecified atrial fibrillation; F03.90 Unspecified dementia, unspecified severity, without behavioral disturbance, psychotic disturbance, mood disturbance, and anxiety; I45.10 Unspecified right bundle-branch block; I44.1 Atrioventricular block, second degree; Z79.899 Other long term (current) drug therapy; Z79.01 Long term (current) use of anticoagulants; Z87.891 Personal history of nicotine dependence
CPT/HCPCS: 36415; 71045; 80048; 80053; 80061; 81001; 83036; 83735; 84484; 85025; 85610; 93005; 93308; 93458; 96367; 96372; 96374; 96376; 99152; 99153; 99285; C1769; C1887; C1894; G0378; J1644; J1650; J2250; J2405; J3010; J3490; J7030; Q9967